=== PATIENT | female | born 1995 | race Caucasian/White ===

== ENCOUNTER → 2016-12-29 | Outpatient (CLI) | payer MEDICAID ==
--- NOTE | 2017-01-01 15:35 | [facility] ---
[facility] NAME: PIETRO AVILES [facility] REFERENCE #: [id number] : 1995 DATE OF VISIT: 12/29/2016 PRIMARY CARE: [facility]. CHIEF COMPLAINT: Followup complex heart disease. HISTORY: The patient is seen at our [facility]. 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 She had pulmonary outflow tract enlargement surgically and no longer has pulmonary stenosis, although her right ventricle remains smaller than normal in its internal cavity dimension. She had [id number]-jw-[id number] shunting across her residual atrial septal defect. She underwent placement by catheter of an Amplatzer ASD occlusion device by my colleague, Dr. Faria, in order to improve her oximetry. Following this, she had an echocardiogram bubble contrast study done in August 2015 showing she had residual atrial gvqif-wq-wvvs shunting with a septal occluder in place. I have seen her in the past with some symptoms of common orthostatic intolerance, including migraine headaches and postural light headedness. At this visit, she reports that when she was taking atenolol she had less headaches, minimal lightheadedness, and no fainting. She does not have significant tachycardia palpitations. MEDICATIONS: Aspirin 81 mg. ALLERGIES TO MEDICATION: None. SOCIAL HISTORY: She lives with friends. She is sexually active and does not use contraception but does use barrier methods. 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 She works at the [employer]. She does not smoke. PAST MEDICAL HISTORY: Childhood heart operation for pulmonary atresia with intact ventricular septum including RV outflow tract reconstruction. 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 She has had hip surgery on both hips, last at age thirteen 13. REVIEW OF SYSTEMS: Positive for headaches two to three times per week. She sometimes gets a muscle spasm in her flank but has minimal back pains. She has lost thirteen pounds since visit of last February, but she has been doing some dieting and has been quite active to slim down a bit. She denies vision problems, wheezing or coughing, vomiting, diarrhea, constipation, urinary symptoms, developmental delays, or skin issues. FAMILY HISTORY: Positive for migraines. PHYSICAL EXAMINATION: Weight 115 pounds. Height five feet one inch. Blood pressure 105/65. Heart rate 70. Oximetry 97%. General exam is a delightful young woman whose color and perfusion appear excellent. She has a cleft lip repair. Her vocal quality is normal. Thyroid not enlarged or nodular. Lungs clear bilateral. Precordial activity is normal. Cardiac auscultation reveals no pathological murmur, click, or gallop. Liver edged palpable 2 cm below the right costal margin but not huge. Pulses are normal. Extremities without edema or acrocyanosis. Gait and coordination appear good. Echocardiogram performed, see report. IMPRESSION: Pulmonary atresia status post right ventricular outflow tract reconstruction with a somewhat hypoplastic cavity of the right ventricle and a mildly small tricuspid annulus. Status post placement of Amplatzer catheter device in the atrial septum to limit [id number]-[id number] atrial shunt. She has good left ventricular function. Her Amplatzer occluder is in good position. Her oximetry level is nearly normal and improved compared to before. She has vascular headaches which have been a problem for her and is a family history trait. She states that she did much better with her headaches when she was on a beta theresa. I am starting her on metoprolol one half of a 25 mg tablet daily. If this resolves her symptoms, she can maintain it. If it does not, I asked her to advance to 25 mg daily and call me with a symptom report. She is to hydrate well. I would like to see her back in one year for another echocardiogram. ESTEBAN OLMOS MD [id number] PHY#: [id number] ID: [id number] JOB#: [id number] ACCT: [id number] cc:ESTEBAN OLMOS MD [facility], M.D > [id number]
--- NOTE | 2017-01-01 16:14 | NONINVASIVE CARDIOLOGY REPORT ---
ECHOCARDIOGRAPHY REPORT PATIENT NAME: PIETRO AVILES ROOM#: DATE OF SERVICE: 12/29/2016 : 1995 REFERRING MD: ORDER #: [id number] INDICATION: Followup complex heart disease. U REFERENCE: [id number] REPORT Patient height 5 foot 1 inch. Weight 115 pounds. This echocardiogram shows excellent position of the Amplatzer occluder. The tricuspid annulus is mildly small. The tricuspid apparatus appears unrestricted in motion. The right ventricular cavity is mildly small. The right ventricular wall is abnormally thick. The left ventricle shows normal systolic performance with ejection fraction 64% and a normal cavity size. The inferior vena cava and hepatic veins are large. The main pulmonary artery and pulmonary annulus appear approximately 1.6 cm diameter. There is no forward pulmonary stenosis through the outflow patch. Pulmonary regurgitation is present but appears to be brief and a very low velocity reflecting the abnormality of diastolic filling of the mildly hypoplastic right ventricle. Trace tricuspid regurgitation is present with a velocity indicating no right ventricular systolic hypertension. There is trivial aortic regurgitation but no significant mitral regurgitation. Color mapping and Doppler show the above-noted features. Cardiac dimensions: LVED 5.4 cm, LVES 3.5 cm, LV wall 0.7 cm, septum 0.7 cm, aortic root 2.7 cm, right ventricle 1.8 cm, left atrium 2.6 cm. Doppler velocities: Aorta 1.0 m/s, pulmonary 0.7 m/s, tricuspid 0.6 m/s, mitral 0.8 m/s, tricuspid regurgitation 1.6 m/s. Per color mapping, no atrial shunt is seen around the Amplatzer occluder. There is no restriction to SVC flow or IVC flow from the Amplatzer occluder. FINAL IMPRESSION: Hypoplastic right heart syndrome with features noted above. Amplatzer occluder in good position. INTERPRETING PHYSICIAN: ESTEBAN OLMOS MD /: [id number] TT: 2040 ID: [id number] /: [id number] TD: 1403 JOB: [id number] cc:ESTEBAN OLMOS MD [facility], M.D >
== END ==
LOC: PC 09:26
PROVIDERS: ATTEND Pediatrics Pediatric Cardiology
DX: Q25.5 Atresia of pulmonary artery (principal)
CPT/HCPCS: 93304; 93321; 93325; 94760

== ENCOUNTER 2017-02-23 01:01 | Emergency (ER) | payer SELFPAY ==
--- NOTE | 2017-02-23 01:50 | ER Document Report ---
ED General - General Chief Complaint: Chest Pain Stated Complaint: CHEST PAIN Time seen by provider: 01:50 Mode of Arrival: Ambulatory Information source: Patient TRAVEL OUTSIDE OF THE U.S. IN LAST 30 DAYS: No - HPI Patient complains to provider of: chest pain Onset: Just prior to arrival Onset/Duration: Sudden Quality of pain: Pressure Severity: Mild Exacerbated by: Denies Relieved by: Denies Similar symptoms previously: No Recently seen / treated by doctor: Yes Notes: Patient is a 21-year-old female with a history of congenital heart defect which includes pulmonary atresia, requiring surgery when she was 10 days old, as well as migraine headaches, hypertension and MS, patient reports symptoms started approximately 30 minutes prior to arrival and in the emergency room, and started when she laid down to go to sleep, states it feels as though she needs to burp, and she feels as though there is pressure when she is trying to swallow , symptoms are better when she is standing straight, and have almost nearly resolved by the time I initially evaluated her, she states her last meal was around 7:30 PM and consisted of chicken and maltese fries - Related Data Allergies/Adverse Reactions: No Known Allergies Allergy (Verified 02/23/17 01:09) Past Medical History - General Information source: Patient - Social History Smoking Status: Current Every Day Smoker Family History: None Neurological Medical History: Reports: Hx Migraine Renal/ Medical History: Denies: Hx Peritoneal Dialysis Past Surgical History: Reports: Hx Cardiac Catheterization, Hx Cardiac Surgery, Hx Open Heart Surgery - valve repair, Hx Oral Surgery - cleft palate repair, Hx Orthopedic Surgery - hip surgery x 2 - Immunizations Immunizations up to date: Yes Hx Diphtheria, Pertussis, Tetanus Vaccination: Yes Review of Systems - Review of Systems Constitutional: No symptoms reported EENT: No symptoms reported Cardiovascular: See HPI Respiratory: No symptoms reported Gastrointestinal: No symptoms reported Genitourinary: No symptoms reported Female Genitourinary: No symptoms reported Musculoskeletal: No symptoms reported Skin: No symptoms reported Hematologic/Lymphatic: No symptoms reported Neurological/Psychological: No symptoms reported -: Yes All other systems reviewed and negative Physical Exam - Vital signs Vitals: Temp Pulse Resp BP Pulse Ox 97.7 F 95 22 H 136/79 H 99 02/23/17 01:11 02/23/17 01:11 02/23/17 01:11 02/23/17 01:11 02/23/17 01:11 Interpretation: Normal - General General appearance: Appears well, Alert - HEENT Head: Normocephalic, Atraumatic Eyes: Normal Pupils: PERRL - Respiratory Respiratory status: No respiratory distress Chest status: Nontender Breath sounds: Normal Chest palpation: Normal - Cardiovascular Rhythm: Regular Heart sounds: Normal auscultation Murmur: No - Abdominal Inspection: Normal Distension: No distension Bowel sounds: Normal Tenderness: Nontender Organomegaly: No organomegaly - Back Back: Normal, Nontender - Extremities General upper extremity: Normal inspection, Nontender, Normal color, Normal ROM , Normal temperature General lower extremity: Normal inspection, Nontender, Normal color, Normal ROM , Normal temperature, Normal weight bearing. No: Brenda's sign - Neurological Neuro grossly intact: Yes Cognition: Normal Orientation: AAOx4 [place] Coma Scale Eye Opening: Spontaneous [place] Coma Scale Verbal: Oriented [place] Coma Scale Motor: Obeys Commands [place] Coma Scale Total: 15 Speech: Normal Motor strength normal: LUE, RUE, LLE, RLE Sensory: Normal - Psychological Associated symptoms: Normal affect, Normal mood - Skin Skin Temperature: Warm Skin Moisture: Dry Skin Color: Normal Course - Re-evaluation Re-evalutation: 02/23/17 03:26 Patient sleeping comfortably on stretcher, easily aroused, reports feeling much better, symptoms have resolved, lab and imaging findings, which are unremarkable , she will be discharged with instructions for follow-up and advised to return if symptoms worsen, patient acknowledges understanding and agreement with this plan - Vital Signs Vital signs: Temp Pulse Resp BP Pulse Ox 98.0 F 90 18 130/80 H 98 02/23/17 03:36 02/23/17 03:36 02/23/17 03:36 02/23/17 03:36 02/23/17 03:36 - Laboratory Result Diagrams: 02/23/17 01:35 02/23/17 01:35 Laboratory results interpreted by me: 02/23/17 01:35 Total Bilirubin 1.6 H Creatine Kinase 148 H - Diagnostic Test Radiology reviewed: Image reviewed, Reports reviewed - EKG Interpretation by Me EKG shows normal: Sinus rhythm Rate: Normal Rhythm: NSR [place]/QRS: RBBB When compared to previous EKG there are: No significant change Discharge - Discharge Clinical Impression: Chest pain Qualifiers: Chest pain type: unspecified Qualified Code(s): R07.9 - Chest pain, unspecified Condition: Stable Disposition: HOME, SELF-CARE Instructions: Chest Pain of Unclear Cause ([facility]) Additional Instructions: Follow up with your primary care provider in one to 2 days. Return to the emergency room immediately if symptoms worsen or any additional concerns.
[2017-02-23 01:58] LABS: ABSOLUTE EOSINOPHILS # (AUTO) 0.1 10^3/uL (0.0-0.6); ABSOLUTE LYMPHOCYTES (AUTO) 1.9 10^3/uL (0.5-4.7); ABSOLUTE MONOCYTES (AUTO) 0.4 10^3/uL (0.1-1.4); ABSOLUTE NEUT (AUTO) 3.7 10^3/uL (1.7-8.2); BASOPHILS % (AUTO) 0.7 % (0-2); EOSINOPHILS % (AUTO) 1.7 % (0-6); HEMATOCRIT 40.3 % (36.0-47.0); HEMOGLOBIN 13.7 g/dL (12.0-15.5); HGB HCT DIFFERENCE 0.8; LYMPHOCYTES % (AUTO) 31.1 % (13-45); MEAN CORPUSCULAR HEMOGLOBIN 30.8 pg (27.0-33.4); MEAN CORPUSCULAR HGB CONC 33.9 g/dL (32.0-36.0); MEAN CORPUSCULAR VOLUME 91 fl (80-97); MONOCYTES % (AUTO) 6.5 % (3-13); RED BLOOD COUNT 4.45 10^6/uL (3.72-5.28); RED CELL DISTRIBUTION WIDTH 12.8 % (11.5-14.0); WHITE BLOOD COUNT 6.1 10^3/uL (4.0-10.5)
[2017-02-23 02:04] LABS: APPEARANCE,URINE SLIGHTLY-CLOUDY; BILIRUBIN,URINE NEGATIVE (NEGATIVE); GLUCOSE, URINE NEGATIVE (NEGATIVE); KETONES,URINE NEGATIVE (NEGATIVE); LEUKOCYTE ESTERASE,URINE NEGATIVE (NEGATIVE); NITRITE,URINE NEGATIVE (NEGATIVE); PROTEIN,URINE NEGATIVE (NEGATIVE); URINE SPECIFIC GRAVITY 1.002; UROBILINOGEN,URINE NEGATIVE mg/dL (<2.0)
[2017-02-23 02:09] LABS: ALANINE AMINOTRANSFERASE 30 U/L (9-52); ALBUMIN 4.5 g/dL (3.5-5.0); ALKALINE PHOSPHATASE 78 U/L (38-126); ANION GAP 16 (5-19); ASPARTATE AMINO TRANSFERASE 29 U/L (14-36); BILIRUBIN,DIRECT 0.4 mg/dL (0.0-0.4); BILIRUBIN,TOTAL 1.6 mg/dL (0.2-1.3); BLOOD UREA NITROGEN 16 mg/dL (7-20); CALCIUM 9.8 mg/dL (8.4-10.2); CARBON DIOXIDE 22 mmol/L (22-30); CHLORIDE 107 mmol/L (98-107); CREATINE KINASE 148 U/L (30-135); CREATININE RESULT 0.79 mg/dL (0.52-1.25); GLUCOSE 92 mg/dL (75-110); POTASSIUM 3.8 mmol/L (3.6-5.0); SODIUM 144.6 mmol/L (137-145); TOTAL PROTEIN 7.3 g/dL (6.3-8.2)
[2017-02-23 02:20] LABS: CREATINE KINASE MB 1.55 ng/mL (<4.55)
[2017-02-23 02:21] LABS: TROPONIN I < 0.012 ng/mL
[2017-02-23 03:37] VITALS: BP 130/80
--- NOTE | 2017-02-23 09:40 | EKG REPORT ---
SEVERITY:- ABNORMAL ECG - SINUS RHYTHM LEFT ATRIAL ABNORMALITY RIGHT BUNDLE BRANCH BLOCK : Confirmed by: Emanuel Michael 23-Feb-2017 09:39:21
== END 2017-02-23 03:44 | disposition home or self-care (01) ==
LOC: ER 01:01
DX: R07.89 Other chest pain (principal); I10 Essential (primary) hypertension; F17.200 Nicotine dependence, unspecified, uncomplicated; Z87.74 Personal history of (corrected) congenital malformations of heart and circulatory system
CPT/HCPCS: 36415; 71020; 80053; 81001; 82550; 82553; 84484; 84703; 85025; 93005; 93010; 99285

== ENCOUNTER 2017-04-06 12:00 | Emergency (ER) | payer SELFPAY ==
--- NOTE | 2017-04-06 12:42 | ER Document Report ---
ED Medical Screen (RME) - General Chief Complaint: Lower Abdominal Pain Stated Complaint: ABDOMINAL PAIN Time Seen by Provider: 04/06/17 12:36 Notes: 21-year-old female patient with stabbing pelvic pain made worse trying to have bowel movement or during urination. There is no dysuria. There is been no vaginal discharge for 2 days. There has been nausea vomiting diarrhea. LMP was 03/24/2017. GC chlamydia PCR urine ordered, to be followed by clean-catch urine for urinalysis. I have greeted and performed a rapid initial assessment of this patient. A comprehensive ED assessment and evaluation of the patient, analysis of test results and completion of the medical decision making process will be conducted by additional ED providers. TRAVEL OUTSIDE OF THE U.S. IN LAST 30 DAYS: No - Related Data Allergies/Adverse Reactions: No Known Allergies Allergy (Verified 04/06/17 12:15) Past Medical History - Social History Chew tobacco use (# tins/day): No Frequency of alcohol use: None Drug Abuse: None Neurological Medical History: Reports: Hx Migraine Renal/ Medical History: Denies: Hx Peritoneal Dialysis Past Surgical History: Reports: Hx Cardiac Catheterization, Hx Cardiac Surgery, Hx Open Heart Surgery - valve repair, Hx Oral Surgery - cleft palate repair, Hx Orthopedic Surgery - hip surgery x 2 - Immunizations Immunizations up to date: Yes Hx Diphtheria, Pertussis, Tetanus Vaccination: Yes Physical Exam - Vital signs Vitals: Temp Pulse Resp BP Pulse Ox 98.0 F 70 16 111/60 96 04/06/17 12:15 04/06/17 12:15 04/06/17 12:15 04/06/17 12:15 04/06/17 12:15 Course - Vital Signs Vital signs: Temp Pulse Resp BP Pulse Ox 98.0 F 70 16 111/60 96 04/06/17 12:15 04/06/17 12:15 04/06/17 12:15 04/06/17 12:15 04/06/17 12:15
[2017-04-06 13:21] LABS: ABSOLUTE EOSINOPHILS # (AUTO) 0.1 10^3/uL (0.0-0.6); ABSOLUTE MONOCYTES (AUTO) 0.3 10^3/uL (0.1-1.4); MEAN CORPUSCULAR HEMOGLOBIN 30.8 pg (27.0-33.4); MEAN CORPUSCULAR HGB CONC 33.1 g/dL (32.0-36.0); MONOCYTES % (AUTO) 5.6 % (3-13)
--- NOTE | 2017-04-06 13:23 | ER Document Report ---
ED GI/ - General Chief Complaint: Lower Abdominal Pain Stated Complaint: ABDOMINAL PAIN Time Seen by Provider: 04/06/17 12:36 Mode of Arrival: Ambulatory Information source: Patient Notes: 1-year-old female presents to ED for pelvic pain states sometimes has cramping and pain with bowel movement or when she urinate. Complains of no pain or burning with urination. Denies any vaginal discharge states she has had nausea vomiting and diarrhea for the last 2 days. Last menstrual period was 03/24/2017. TRAVEL OUTSIDE OF THE [place]. IN LAST 30 DAYS: No - HPI Patient complains to provider of: Abdominal pain, Diarrhea, Vomiting Onset: Yesterday Timing/Duration: Intermittent Quality of pain: Cramping Location: Pelvis Vaginal bleeding (Compared to normal period): None LMP: 03/24/17 Associated symptoms: Nausea, Vomiting Exacerbated by: Other - bm Relieved by: Denies Similar symptoms previously: Yes Recently seen / treated by doctor: No - Related Data Allergies/Adverse Reactions: No Known Allergies Allergy (Verified 04/06/17 12:15) Past Medical History - General Information source: Patient - Social History Smoking Status: Current Every Day Smoker Cigarette use (# per day): Yes - 3-4 cig a day Chew tobacco use (# tins/day): No Smoking Education Provided: Yes - less than 2 min Frequency of alcohol use: None Drug Abuse: None Occupation: [employer] Lives with: Spouse/Significant other Family History: Arthritis, CAD, COPD, CVA, DM, Hyperlipidemia, Hypertension Patient has suicidal ideation: No Patient has homicidal ideation: No - Medical History Medical History: Other - Lip and cleft palate - Past Medical History Cardiac Medical History: Reports: Other - Congenital heart disease and ASD Pulmonary Medical History: Reports: None EENT Medical History: Reports: None Neurological Medical History: Reports: Hx Migraine Endocrine Medical History: Reports: None Renal/ Medical History: Reports: None Malignancy Medical History: Reports: None GI Medical History: Reports: None Musculoskeltal Medical History: Reports Hx Musculoskeletal Deformity Skin Medical History: Reports None Psychiatric Medical History: Reports: None Traumatic Medical History: Reports: None Infectious Medical History: Reports: None Past Surgical History: Reports: Hx Cardiac Catheterization, Hx Open Heart Surgery - valve repair, Hx Oral Surgery - cleft palate and lip repair, Hx Orthopedic Surgery - hip surgery x 2 - Immunizations Immunizations up to date: Yes Hx Diphtheria, Pertussis, Tetanus Vaccination: Yes Review of Systems - Review of Systems Constitutional: No symptoms reported EENT: No symptoms reported Cardiovascular: No symptoms reported Respiratory: No symptoms reported Gastrointestinal: Abdominal pain, Diarrhea, Nausea, Vomiting Genitourinary: No symptoms reported Female Genitourinary: Other - Pain pelvic Musculoskeletal: No symptoms reported Skin: No symptoms reported Hematologic/Lymphatic: No symptoms reported Neurological/Psychological: No symptoms reported -: Yes All other systems reviewed and negative Physical Exam - Vital signs Vitals: Temp Pulse Resp BP Pulse Ox 98.0 F 70 16 111/60 96 04/06/17 12:15 04/06/17 12:15 04/06/17 12:15 04/06/17 12:15 04/06/17 12:15 Interpretation: Normal - General General appearance: Appears well, Alert - HEENT Head: Normocephalic, Atraumatic Eyes: Normal Pupils: PERRL - Respiratory Respiratory status: No respiratory distress Chest status: Nontender Breath sounds: Normal Chest palpation: Normal - Cardiovascular Rhythm: Regular Heart sounds: Normal auscultation Murmur: No - Abdominal Inspection: Normal Distension: No distension Bowel sounds: Normal Tenderness: Tender - Lower abdomen pelvis area Organomegaly: No organomegaly - Back Back: Normal, Nontender - Extremities General upper extremity: Normal inspection, Nontender, Normal color, Normal ROM , Normal temperature General lower extremity: Normal inspection, Nontender, Normal color, Normal ROM , Normal temperature, Normal weight bearing. No: Brenda's sign - Neurological Neuro grossly intact: Yes Cognition: Normal Orientation: AAOx4 [place] Coma Scale Eye Opening: Spontaneous [place] Coma Scale Verbal: Oriented [place] Coma Scale Motor: Obeys Commands [place] Coma Scale Total: 15 Speech: Normal Motor strength normal: LUE, RUE, LLE, RLE Sensory: Normal - Psychological Associated symptoms: Normal affect, Normal mood - Skin Skin Temperature: Warm Skin Moisture: Dry Skin Color: Normal Course - Re-evaluation Re-evalutation: 04/06/17 22:17 Labs with patient. Patient discharged home with prescription for Zofran and instructions to follow-up with her primary doctor. Given peanut butter crackers and juice due to her sugar of 63 while in the emergency room and instructed to eat when she left the emergency room. - Vital Signs Vital signs: Temp Pulse Resp BP Pulse Ox 98.4 F 68 18 108/54 L 100 04/06/17 15:30 04/06/17 15:30 04/06/17 15:30 04/06/17 15:30 04/06/17 15:30 - Laboratory Result Diagrams: 04/06/17 13:10 04/06/17 13:10 Laboratory results interpreted by me: 04/06/17 04/06/17 13:10 13:10 Glucose 63 L Total Bilirubin 1.8 H Urine Urobilinogen 2.0 H Ur Leukocyte Esterase TRACE H Discharge - Discharge Clinical Impression: Viral illness Abdominal pain Qualifiers: Abdominal location: unspecified location Qualified Code(s): R10.9 - Unspecified abdominal pain Condition: Stable Disposition: HOME, SELF-CARE Instructions: Family Physicians / Practices Additional Instructions: ABDOMINAL PAIN: There are many causes of abdominal pain. Pain can mean a serious problem requiring surgery (such as appendicitis). It can also be an innocent problem that goes away on its own (such as a viral infection). Often, time must pass to determine the cause of pain. The physician does not feel that hospitalization is necessary, at present. Things may change within the next 24 hours. Call the doctor or come back for re- examination if any problems occur, such as: (1) Pain that becomes more severe, steady, or becomes concentrated in one specific area. Also, pain that is more severe with movement or coughing. (2) Vomiting that persists or becomes more frequent. (3) Blood in the vomitus, urine, or bowel movements. Blood in the stool may have a tarry or black appearance. (4) Shaking chills or fever greater than 100 degrees F. (5) The abdomen becomes more distended or swollen. (6) Bowel movements cease. (7) Failure to improve as expected. NORMAL EXAM AND WORKUP: At this time, your examination and workup show no significant abnormality. No significant abnormal physical findings are noted. All laboratory, EKG, and imaging (x-ray, CT scans, ultrasound) studies that were ordered show no significant abnormality. Although your examination and all studies that were ordered showed no significant abnormal finding, there are no examinations and no studies that are 100% accurate. There is always the possibility that some abnormality could exist and not be detected with physical examination or within the limits and capabilities of laboratory and other studies. You should return or follow up as you were instructed on your visit today for further evaluation if your symptoms do not resolve. ANTINAUSEA MEDICATION: You have been given a medication to suppress nausea and vomiting. This type of medication can be given as a shot, pill, or suppository. It will usually last for many hours. Pills and shots usually last six to eight hours, suppositories last about 12 hours. For the typical illness, only one or two doses of the medication may be necessary. Mild lightheadedness may occur. This type of medicine can cause drowsiness. Do not drive or operate dangerous machinery while under its influence. Do not mix with alcohol. See your doctor at once if you have muscle spasms or tightness, or uncontrollable motions (particularly of the neck, mouth, or jaw). Persistent vomiting or severe lightheadedness should also be evaluated by the physician. FOLLOW-UP CARE: If you have been referred to a physician for follow-up care, call the physician s office for an appointment as you were instructed or within the next two days. If you experience worsening or a significant change in your symptoms, notify the physician immediately or return to the Emergency Department at any time for re-evaluation. FOLLOW-UP CARE: You should return for re-evaluation in 12 hours. This follow-up visit is important. If you are unable to return, or feel that the return visit is unnecessary, please call us. Prescriptions: Ondansetron [Zofran Odt 4 mg Tablet] 1 tab PO Q6H #15 tab.rapdis Forms: Smoking Cessation Education, Return to Work
[2017-04-06 13:32] LABS: APPEARANCE,URINE SLIGHTLY-CLOUDY; BILIRUBIN,URINE NEGATIVE (NEGATIVE); GLUCOSE, URINE NEGATIVE (NEGATIVE); KETONES,URINE NEGATIVE (NEGATIVE); LEUKOCYTE ESTERASE,URINE TRACE (NEGATIVE); NITRITE,URINE NEGATIVE (NEGATIVE); PROTEIN,URINE NEGATIVE (NEGATIVE); URINE SPECIFIC GRAVITY 1.025
[2017-04-06 13:33] LABS: ABSOLUTE LYMPHOCYTES (AUTO) 1.2 10^3/uL (0.5-4.7); ABSOLUTE NEUT (AUTO) 3.6 10^3/uL (1.7-8.2); BASOPHILS % (AUTO) 0.7 % (0-2); EOSINOPHILS % (AUTO) 1.3 % (0-6); HEMATOCRIT 44.1 % (36.0-47.0); HEMOGLOBIN 14.6 g/dL (12.0-15.5); HGB HCT DIFFERENCE -0.3; LYMPHOCYTES % (AUTO) 22.9 % (13-45); MEAN CORPUSCULAR VOLUME 93 fl (80-97); RED BLOOD COUNT 4.73 10^6/uL (3.72-5.28); RED CELL DISTRIBUTION WIDTH 13.1 % (11.5-14.0); SEGMENTED NEUTROPHILS % (AUTO) 69.5 % (42-78); WHITE BLOOD COUNT 5.3 10^3/uL (4.0-10.5)
[2017-04-06 13:48] LABS: ALANINE AMINOTRANSFERASE 34 U/L (9-52); ALBUMIN 4.4 g/dL (3.5-5.0); ALKALINE PHOSPHATASE 74 U/L (38-126); ANION GAP 10 (5-19); ASPARTATE AMINO TRANSFERASE 27 U/L (14-36); BILIRUBIN,DIRECT 0.3 mg/dL (0.0-0.4); BILIRUBIN,TOTAL 1.8 mg/dL (0.2-1.3); BLOOD UREA NITROGEN 11 mg/dL (7-20); CALCIUM 9.6 mg/dL (8.4-10.2); CARBON DIOXIDE 25 mmol/L (22-30); CHLORIDE 106 mmol/L (98-107); CREATININE RESULT 0.75 mg/dL (0.52-1.25); GLUCOSE 63 mg/dL (75-110); POTASSIUM 4.1 mmol/L (3.6-5.0); SODIUM 140.5 mmol/L (137-145); TOTAL PROTEIN 7.4 g/dL (6.3-8.2)
[2017-04-06 15:05] LABS: CHLAM PCR NOT DETECTED (NOT DETECT)
[2017-04-06 16:02] VITALS: BP 108/54
== END 2017-04-06 16:02 | disposition home or self-care (01) ==
LOC: ER 12:00
DX: B34.9 Viral infection, unspecified (principal); R10.30 Lower abdominal pain, unspecified; R19.7 Diarrhea, unspecified; R11.10 Vomiting, unspecified; F17.210 Nicotine dependence, cigarettes, uncomplicated
CPT/HCPCS: 36415; 80053; 81001; 84703; 85025; 87491; 87591; 99284

== ENCOUNTER 2017-12-13 12:42 | Emergency (ER) | payer SELFPAY ==
--- NOTE | 2017-12-13 13:49 | ER Document Report ---
ED Medical Screen (RME) - General Chief Complaint: Abdominal Pain Stated Complaint: HEADACHE, DIARRHEA, NAUSEA Time Seen by Provider: 12/13/17 13:48 Mode of Arrival: Ambulatory Information source: Patient Notes: 22-year-old female with a history of cleft palate, pulmonary atresia, who presents with a migraine headache for the past 5 days. Patient denies any fever , chills, abdominal pain or vomiting. TRAVEL OUTSIDE OF THE [place] IN LAST 30 DAYS: No - HPI Onset: Last week Onset/Duration: Gradual Quality of pain: Dull Severity: Moderate Pain Level: 2 Associated Symptoms: denies: Chest pain, Fever, Slow to respond Exacerbated by: Denies Relieved by: Denies Similar symptoms previously: Yes Recently seen / treated by doctor: No - Related Data Smoking: Non-smoker Frequency of alcohol use: None Drug Abuse: None Allergies/Adverse Reactions: No Known Allergies Allergy (Verified 04/06/17 12:15) Past Medical History - General Information source: Patient - Social History Cigarette use (# per day): No Chew tobacco use (# tins/day): No Frequency of alcohol use: None Drug Abuse: None Lives with: Spouse/Significant other Family history: None - Past Medical History Cardiac Medical History: Reports: None Pulmonary Medical History: Reports: Other - Pulmonary atresia EENT Medical History: Reports: Other - Cleft palate Neurological Medical History: Reports: Hx Migraine Renal/ Medical History: Denies: Hx Peritoneal Dialysis Musculoskeltal Medical History: Reports Hx Musculoskeletal Deformity Past Surgical History: Reports: Hx Cardiac Catheterization, Hx Cardiac Surgery, Hx Open Heart Surgery - valve repair, Hx Oral Surgery - cleft palate and lip repair, Hx Orthopedic Surgery - hip surgery x 2 - Immunizations Immunizations up to date: Yes Hx Diphtheria, Pertussis, Tetanus Vaccination: Yes Review of Systems - Review of Systems Notes: Review of systems: Constitutional: Denies fever, chills. EENT: Denies ear pain, sinus tenderness, throat pain, throat swelling. Cardiovascular: Denies chest pain, palpitations, dyspnea or edema. Respiratory: Denies wheezing, cough, hemoptysis. Abdomen: Denies abdominal pain, nausea, vomiting, diarrhea. Denies BRBPR or melena. Genitourinary: Denies dysuria, pyuria, hematuria, flank pain. Musculoskeletal: denies joint pain or swelling, denies back pain. Neurologic: Positive for headache. Denies photophobia, neck stiffness, weakness. Denies loss of bowel or bladder function. Denies saddle anesthesia. Skin: Denies rash, lesions. Physical Exam - Vital signs Vitals: Temp Pulse Resp BP Pulse Ox 98.1 F 65 14 117/70 96 12/13/17 13:11 12/13/17 13:11 12/13/17 13:11 12/13/17 13:11 12/13/17 13:11 Notes: Physical exam: GENERAL: 82-year-old female, alert and oriented 3, no acute distress. The patient is sitting up, looks good. HEAD: Atraumatic, normocephalic. EYES: Pupils equal round and reactive to light, extraocular movements intact, sclera anicteric, conjunctiva are normal. ENT: TMs normal, nares patent, oropharynx clear without exudates. Moist mucous membranes. NECK: Normal range of motion, supple without obvious mass or JVD. LUNGS: Breath sounds clear to auscultation bilaterally and equal. No wheezes rales or rhonchi. HEART: Regular rate and rhythm without murmurs, rubs or gallops. ABDOMEN: Soft, normoactive bowel sounds. No tenderness to palpation. No guarding, no rebound. No masses appreciated. EXTREMITIES: Normal range of motion, no pitting or edema. No clubbing or cyanosis. NEUROLOGICAL: Cranial nerves II through XII grossly intact. Discs sharp, motor 5/5, sensory grossly intact, cerebellar (finger to nose) good, Romberg negative , reflexes symmetrical, normal speech, gait normal. The patient has no photophobia, her neck is supple, there is no meningismus. PSYCH: Normal mood, normal affect. SKIN: Warm, Dry, normal turgor, no rashes or lesions noted. Course - Vital Signs Vital signs: Temp Pulse Resp BP Pulse Ox 98.1 F 65 14 117/70 96 12/13/17 13:11 12/13/17 13:11 12/13/17 13:11 12/13/17 13:11 12/13/17 13:11 Doctor's Discharge - Discharge Clinical Impression: Migraine Condition: Stable Disposition: HOME, SELF-CARE Instructions: Migraine Headache ([facility]) Additional Instructions: As we discussed, your neurologic exam is very good today. Recommendations: Try the Reglan: This is a medicine for migraines and nausea. Take it at night because you it may make you feel sleepy. I would like you to follow-up with a neurologist: I left a number on the chart. Return to the emergency room if you feel like her migraines are getting worse. I would also like you to follow-up with Dr. Alvarenga for the pulmonary atresia. Prescriptions: Metoclopramide HCl [Reglan 10 mg Tablet] 1 - 2 tab PO ASDIR PRN #10 tablet PRN Reason: Referrals: NIALL GARRIDO MD [ACTIVE STAFF] - Follow up as needed (Call for an appointment (this is the number for the neurologist).)
[2017-12-13 14:33] VITALS: BP 109/81
== END 2017-12-13 14:30 | disposition home or self-care (01) ==
LOC: ER 12:42
DX: G43.909 Migraine, unspecified, not intractable, without status migrainosus (principal)
CPT/HCPCS: 81025; 99284

== ENCOUNTER 2018-01-08 18:55 | Emergency (ER) | payer SELFPAY ==
--- NOTE | 2018-01-08 19:53 | ER Document Report ---
ED Medical Screen (RME) - General Chief Complaint: Abdominal Cramping Stated Complaint: VAGINAL BLEEDING/CRAMPING Time Seen by Provider: 01/08/18 19:52 Mode of Arrival: Ambulatory Information source: Patient Notes: 22-year-old female presents with complaints of vaginal bleeding. Patient is 2 para 1 5 weeks noting slimy red bleeding since this morning History of pulmonary atresia I have greeted and performed a rapid initial assessment of this patient. A comprehensive ED assessment and evaluation of the patient, analysis of test results and completion of the medical decision making process will be conducted by additional ED providers. PHYSICAL EXAMINATION: GENERAL: Well-appearing, well-nourished and in no acute distress. HEAD: Atraumatic, normocephalic. EYES: Pupils equal round extraocular movements intact, conjunctiva are normal. ENT: Nares patent NECK: Normal range of motion LUNGS: No respiratory distress Musculoskeletal: Normal range of motion NEUROLOGICAL: Normal speech, normal gait. PSYCH: Normal mood, normal affect. SKIN: Midline surgical incision scar TRAVEL OUTSIDE OF THE [place] IN LAST 30 DAYS: No - Related Data Allergies/Adverse Reactions: No Known Allergies Allergy (Verified 01/08/18 18:56) Past Medical History - Social History Family history: None Neurological Medical History: Reports: Hx Migraine Renal/ Medical History: Denies: Hx Peritoneal Dialysis Musculoskeltal Medical History: Reports Hx Musculoskeletal Deformity Past Surgical History: Reports: Hx Cardiac Catheterization, Hx Cardiac Surgery, Hx Open Heart Surgery - valve repair, Hx Oral Surgery - cleft palate and lip repair, Hx Orthopedic Surgery - hip surgery x 2 - Immunizations Immunizations up to date: Yes Hx Diphtheria, Pertussis, Tetanus Vaccination: Yes Physical Exam - Vital signs Vitals: Temp Pulse Resp BP Pulse Ox 98.0 F 87 18 123/73 99 01/08/18 19:08 01/08/18 19:08 01/08/18 19:08 01/08/18 19:08 01/08/18 19:08 Course - Vital Signs Vital signs: Temp Pulse Resp BP Pulse Ox 98.0 F 87 18 123/73 99 01/08/18 19:08 01/08/18 19:08 01/08/18 19:08 01/08/18 19:08 01/08/18 19:08
[2018-01-08 20:29] LABS: ABSOLUTE EOSINOPHILS # (AUTO) 0.1 10^3/uL (0.0-0.6); ABSOLUTE LYMPHOCYTES (AUTO) 1.6 10^3/uL (0.5-4.7); ABSOLUTE MONOCYTES (AUTO) 0.6 10^3/uL (0.1-1.4); ABSOLUTE NEUT (AUTO) 6.1 10^3/uL (1.7-8.2); BASOPHILS % (AUTO) 0.3 % (0-2); EOSINOPHILS % (AUTO) 0.7 % (0-6); HEMOGLOBIN 14.5 g/dL (12.0-15.5); LYMPHOCYTES % (AUTO) 19.4 % (13-45); MEAN CORPUSCULAR HGB CONC 33.7 g/dL (32.0-36.0); MEAN CORPUSCULAR VOLUME 92 fl (80-97); MONOCYTES % (AUTO) 6.9 % (3-13); PLATELET COUNT 220 10^3/uL (150-450); RED BLOOD COUNT 4.67 10^6/uL (3.72-5.28); RED CELL DISTRIBUTION WIDTH 12.8 % (11.5-14.0); SEGMENTED NEUTROPHILS % (AUTO) 72.7 % (42-78); TOTAL CELLS COUNTED % (AUTO) 100 %; WHITE BLOOD COUNT 8.4 10^3/uL (4.0-10.5)
[2018-01-08 20:39] LABS: ALANINE AMINOTRANSFERASE 41 U/L (9-52); ALBUMIN 4.7 g/dL (3.5-5.0); ALKALINE PHOSPHATASE 68 U/L (38-126); ANION GAP 9 (5-19); ASPARTATE AMINO TRANSFERASE 29 U/L (14-36); BILIRUBIN,DIRECT 0.4 mg/dL (0.0-0.4); BILIRUBIN,TOTAL 0.7 mg/dL (0.2-1.3); BLOOD UREA NITROGEN 13 mg/dL (7-20); CALCIUM 9.8 mg/dL (8.4-10.2); CARBON DIOXIDE 28 mmol/L (22-30); CHLORIDE 106 mmol/L (98-107); GLUCOSE 93 mg/dL (75-110); POTASSIUM 3.6 mmol/L (3.6-5.0); SODIUM 143.4 mmol/L (137-145); TOTAL PROTEIN 7.4 g/dL (6.3-8.2)
[2018-01-08 20:40] LABS: APPEARANCE,URINE SLIGHTLY-CLOUDY; BILIRUBIN,URINE NEGATIVE (NEGATIVE); COLOR,URINE YELLOW; GLUCOSE, URINE NEGATIVE (NEGATIVE); KETONES,URINE NEGATIVE (NEGATIVE); LEUKOCYTE ESTERASE,URINE SMALL (NEGATIVE); NITRITE,URINE NEGATIVE (NEGATIVE); PROTEIN,URINE NEGATIVE (NEGATIVE); URINE SPECIFIC GRAVITY 1.017; UROBILINOGEN,URINE NEGATIVE mg/dL (<2.0)
--- NOTE | 2018-01-08 22:54 | ER Document Report ---
ED GI/ - General Mode of Arrival: Ambulatory Information source: Patient TRAVEL OUTSIDE OF THE [place] IN LAST 30 DAYS: No <ROGELIO CONDE - Last Filed: 01/09/18 01:17> <ROSAURA GUTIÉRREZ - Last Filed: 01/09/18 02:17> - General Chief Complaint: Abdominal Cramping Stated Complaint: VAGINAL BLEEDING/CRAMPING Time Seen by Provider: 01/08/18 19:52 Notes: Patient is a 22-year-old female who presents to the emergency department today with complaints of vaginal bleeding and lower abdominal cramping. Patient states that she was "not planning on getting ". 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 (ROGELIO CONDE) - Related Data Allergies/Adverse Reactions: No Known Allergies Allergy (Verified 01/08/18 18:56) Past Medical History - General Information source: Patient - Social History Smoking Status: Never Smoker Chew tobacco use (# tins/day): No Frequency of alcohol use: None Drug Abuse: None Family History: Arthritis, CAD, COPD, CVA, DM, Hyperlipidemia, Hypertension Patient has suicidal ideation: No Patient has homicidal ideation: No Neurological Medical History: Reports: Hx Migraine Renal/ Medical History: Denies: Hx Peritoneal Dialysis Musculoskeltal Medical History: Reports Hx Musculoskeletal Deformity Past Surgical History: Reports: Hx Cardiac Catheterization, Hx Cardiac Surgery, Hx Open Heart Surgery - valve repair, Hx Oral Surgery - cleft palate and lip repair, Hx Orthopedic Surgery - hip surgery x 2 - Immunizations Immunizations up to date: Yes Hx Diphtheria, Pertussis, Tetanus Vaccination: Yes <ROGELIO CONDE - Last Filed: 01/09/18 01:17> Review of Systems - Review of Systems Constitutional: No symptoms reported EENT: No symptoms reported Cardiovascular: No symptoms reported Respiratory: No symptoms reported Gastrointestinal: See HPI, Abdominal pain Genitourinary: No symptoms reported Female Genitourinary: See HPI, Vaginal bleeding Musculoskeletal: No symptoms reported Skin: No symptoms reported Hematologic/Lymphatic: No symptoms reported Neurological/Psychological: No symptoms reported -: Yes All other systems reviewed and negative <ROGELIO CONDE - Last Filed: 01/09/18 01:17> Physical Exam - Vital signs Interpretation: Normal - General General appearance: Appears well, Alert - HEENT Head: Normocephalic, Atraumatic Eyes: Normal Pupils: PERRL - Respiratory Respiratory status: No respiratory distress Chest status: Nontender Breath sounds: Normal Chest palpation: Normal - Cardiovascular Rhythm: Regular Heart sounds: Normal auscultation Murmur: No - Abdominal Inspection: Normal Distension: No distension Bowel sounds: Normal Tenderness: Tender - Mild suprapubic. No: Guarding, Rebound Organomegaly: No organomegaly - Back Back: Normal, Nontender - Extremities General upper extremity: Normal inspection, Nontender, Normal color, Normal ROM , Normal temperature General lower extremity: Normal inspection, Nontender, Normal color, Normal ROM , Normal temperature, Normal weight bearing. No: Brenda's sign - Neurological Neuro grossly intact: Yes Cognition: Normal Orientation: AAOx4 [place] Coma Scale Eye Opening: Spontaneous [place] Coma Scale Verbal: Oriented [place] Coma Scale Motor: Obeys Commands [place] Coma Scale Total: 15 Speech: Normal Motor strength normal: LUE, RUE, LLE, RLE Sensory: Normal - Psychological Associated symptoms: Normal affect, Normal mood - Skin Skin Temperature: Warm Skin Moisture: Dry Skin Color: Normal <ROSAURA GUTIÉRREZ - Last Filed: 01/09/18 02:17> - Vital signs Vitals: Temp Pulse Resp BP Pulse Ox 98.0 F 87 18 123/73 99 01/08/18 19:08 01/08/18 19:08 01/08/18 19:08 01/08/18 19:08 01/08/18 19:08 Course - Laboratory Result Diagrams: 01/08/18 20:00 01/08/18 20:00 <ROGELIO CONDE - Last Filed: 01/09/18 01:17> - Laboratory Result Diagrams: 01/08/18 20:00 01/08/18 20:00 <ROSAURA GUTIÉRREZ - Last Filed: 01/09/18 02:17> - Re-evaluation Re-evalutation: Patient is a 22-year-old female who comes in for mild pelvic cramping and spotting. Patient has a serum hCG of 9. Last month hCG was negative. Ultrasound is not showing intrauterine , likely because it is too early to see anything. Patient is stable. She is not planning on continuing the . She has been given a referral to women's health but states that she does not need resources at this time. Stable for discharge. Return if any worsening of concerning symptoms. (ROSAURA GUTIÉRREZ) - Vital Signs Vital signs: Temp Pulse Resp BP Pulse Ox 98.4 F 67 18 115/65 100 01/08/18 22:56 01/08/18 23:20 01/08/18 23:20 01/08/18 23:20 01/08/18 23:20 - Laboratory Laboratory results interpreted by me: 01/08/18 01/08/18 20:00 20:00 Beta HCG, Quant 9.86 H Urine Blood LARGE H Ur Leukocyte Esterase SMALL H Discharge <ROGELIO CONDE - Last Filed: 01/09/18 01:17> <ROSAURA GUTIÉRREZ - Last Filed: 01/09/18 02:17> - Discharge Clinical Impression: Bleeding in early Condition: Stable Disposition: HOME, SELF-CARE Instructions: Bleeding During Early ([facility] Department Referrals: [facility] [Provider Group] - Follow up as needed Scribe Attestation: 01/09/18 02:17 I personally performed the services described in the documentation, reviewed and edited the documentation which was dictated to the scribe in my presence, and it accurately records my words and actions. (ROSAURA GUTIÉRREZ) Scribe Documentation - Scribe Written by Michelle:: Michelle Senior, 01/09/2018 [id number] acting as scribe for :: Matthias <ROGELIO CONDE - Last Filed: 01/09/18 01:17>
[2018-01-08 23:25] VITALS: BP 115/65
--- NOTE | 2018-01-09 00:37 | RADIOLOGY REPORT (SQ) ---
EXAM DESCRIPTION: U/S OB TRANSVAGINAL W/O DOP CLINICAL HISTORY: 22 years, Female, 5 weeks vag bleed COMPARISON: None. LIMITATIONS: None. FINDINGS: No living intrauterine identified. 6.3 cm uterus, 2.9 cm right ovary, left ovarian fossa, 2.6 cm cervical length, 0.6 cm thick endometrial stripe appear otherwise unremarkable. Left ovary is separately visualized. Small free fluid in the cul-de-sac. Uterine contour is slightly atypical; cannot exclude a mild mullerian duct developmental variant. IMPRESSION: No living intrauterine is identified. Small free fluid. Differential diagnosis includes early occult viable gestation, gestational loss, and occult ectopic gestation. Recommend 48 to 72 hour laboratory/sonographic surveillance.
== END 2018-01-08 23:20 | disposition home or self-care (01) ==
LOC: ER 18:55
DX: O20.9 Hemorrhage in early pregnancy, unspecified (principal); R10.30 Lower abdominal pain, unspecified
CPT/HCPCS: 36415; 76817; 80053; 81001; 84702; 85025; 87086; 99284

== ENCOUNTER 2018-04-03 09:47 | Emergency (ER) | payer SELFPAY ==
[2018-04-03 10:52] LABS: ABSOLUTE BASOPHILS # (AUTO) 0.1 10^3/uL (0.0-0.2); ABSOLUTE EOSINOPHILS # (AUTO) 0.1 10^3/uL (0.0-0.6); ABSOLUTE LYMPHOCYTES (AUTO) 1.2 10^3/uL (0.5-4.7); ABSOLUTE MONOCYTES (AUTO) 0.5 10^3/uL (0.1-1.4); ABSOLUTE NEUT (AUTO) 5.3 10^3/uL (1.7-8.2); BASOPHILS % (AUTO) 0.9 % (0-2); EOSINOPHILS % (AUTO) 1.3 % (0-6); HEMATOCRIT 44.5 % (36.0-47.0); HEMOGLOBIN 15.1 g/dL (12.0-15.5); LYMPHOCYTES % (AUTO) 16.8 % (13-45); MEAN CORPUSCULAR HEMOGLOBIN 30.9 pg (27.0-33.4); MEAN CORPUSCULAR HGB CONC 33.9 g/dL (32.0-36.0); MEAN CORPUSCULAR VOLUME 91 fl (80-97); MONOCYTES % (AUTO) 6.6 % (3-13); PLATELET COUNT 207 10^3/uL (150-450); RED BLOOD COUNT 4.88 10^6/uL (3.72-5.28); RED CELL DISTRIBUTION WIDTH 13.1 % (11.5-14.0); SEGMENTED NEUTROPHILS % (AUTO) 74.4 % (42-78); TOTAL CELLS COUNTED % (AUTO) 100 %; WHITE BLOOD COUNT 7.1 10^3/uL (4.0-10.5)
--- NOTE | 2018-04-03 10:52 | ER Document Report ---
ED GI/ - General Chief Complaint: Abdominal Pain Stated Complaint: ABDOMINAL PAIN Time Seen by Provider: 04/03/18 10:52 Mode of Arrival: Ambulatory Information source: Patient Notes: 22 yo female c/o abdominal pain for 3 days, right pelvis. No fever or chills. No n/v/d. No vaginal discharge or odor. No dysuria. TRAVEL OUTSIDE OF THE [place] IN LAST 30 DAYS: No - Related Data Allergies/Adverse Reactions: No Known Allergies Allergy (Verified 04/03/18 09:51) Past Medical History - General Information source: Patient - Social History Smoking Status: Unknown if Ever Smoked Chew tobacco use (# tins/day): No Frequency of alcohol use: None Drug Abuse: None Lives with: Spouse/Significant other Family History: Arthritis, CAD, COPD, CVA, DM, Hyperlipidemia, Hypertension Patient has suicidal ideation: No Patient has homicidal ideation: No Neurological Medical History: Reports: Hx Migraine Renal/ Medical History: Denies: Hx Peritoneal Dialysis Musculoskeltal Medical History: Reports Hx Musculoskeletal Deformity Past Surgical History: Reports: Hx Cardiac Catheterization, Hx Cardiac Surgery, Hx Open Heart Surgery - valve repair, Hx Oral Surgery - cleft palate and lip repair, Hx Orthopedic Surgery - hip surgery x 2 - Immunizations Immunizations up to date: Yes Hx Diphtheria, Pertussis, Tetanus Vaccination: Yes Review of Systems - Review of Systems Constitutional: No symptoms reported EENT: No symptoms reported Cardiovascular: No symptoms reported Respiratory: No symptoms reported Gastrointestinal: No symptoms reported Genitourinary: See HPI Female Genitourinary: No symptoms reported Musculoskeletal: No symptoms reported Skin: No symptoms reported Hematologic/Lymphatic: No symptoms reported Neurological/Psychological: No symptoms reported Physical Exam - Vital signs Vitals: Temp Pulse Resp BP Pulse Ox 98.0 F 78 16 114/59 L 96 04/03/18 09:58 04/03/18 09:58 04/03/18 09:58 04/03/18 09:58 04/03/18 09:58 Interpretation: Normal - General General appearance: Appears well, Alert - HEENT Head: Normocephalic, Atraumatic Eyes: Normal Pupils: PERRL Neck: Supple - Respiratory Respiratory status: No respiratory distress Chest status: Nontender Breath sounds: Normal Chest palpation: Normal - Cardiovascular Rhythm: Regular Heart sounds: Normal auscultation Murmur: No - Abdominal Inspection: Normal Distension: No distension Bowel sounds: Normal Tenderness: Tender - pelvos Organomegaly: No organomegaly - Genitourinary External exam: Normal Speculum exam: Cervix closed, Vaginal discharge - yellow, Other - few petechiae on the cervix [place] exam: Cervical motion tender - Back Back: Normal, Nontender. No: CVA tenderness - Extremities General upper extremity: Normal inspection, Nontender, Normal color, Normal ROM , Normal temperature General lower extremity: Normal inspection, Nontender, Normal color, Normal ROM , Normal temperature, Normal weight bearing. No: Brenda's sign - Neurological Neuro grossly intact: Yes Cognition: Normal Orientation: AAOx4 [place] Coma Scale Eye Opening: Spontaneous [place] Coma Scale Verbal: Oriented [place] Coma Scale Motor: Obeys Commands [place] Coma Scale Total: 15 Speech: Normal Motor strength normal: LUE, RUE, LLE, RLE Sensory: Normal - Psychological Associated symptoms: Normal affect, Normal mood - Skin Skin Temperature: Warm Skin Moisture: Dry Skin Color: Normal Course - Re-evaluation Re-evalutation: 04/03/18 13:00 test is negative, wet prep shows bacteria and white blood cells not trichomonas yeast or bacterial vaginosis. CBC chemistry are normal. Urinalysis is negative for infection. 04/03/18 13:01 Patient will have a pelvic ultrasound to look for TOA or torsion. 04/03/18 14:49 pt feels better, moderate free fluid on the US, labs are negative. non . 04/03/18 15:50 pt jumped out of the chair, but whinces to abd. pain which is soft, active BS, non tender to light palpation, states it is upper now , will try GI cocktail and prevacid, po's since she is really [place]; 04/03/18 15:54 04/03/18 16:[address] castro about the moderate free fluid and he rec. IV ct to determine actually what is going on. I have explained to the pt. 04/03/18 17:[address] Peralta about the IV CT and he does see a left ovary which is running high which is the reason they probably could not seen on the transvaginal ultrasound. The right ovary shows a what he thinks is a luteal cyst that probably ruptured causing moderate pounds to the free fluid. I just wanted to make sure that both ovaries were visible. And I will have the patient follow-up with [facility]. - Vital Signs Vital signs: Temp Pulse Resp BP Pulse Ox 97.6 F 82 18 111/69 96 04/03/18 17:38 04/03/18 17:38 04/03/18 17:38 04/03/18 17:38 04/03/18 17:38 - Laboratory Result Diagrams: 04/03/18 10:26 04/03/18 10:26 Laboratory results interpreted by me: 04/03/18 04/03/18 10:26 10:26 Chloride 108 H Total Bilirubin 1.6 H Urine Urobilinogen 2.0 H Discharge - Discharge Clinical Impression: abd pain, Pelvic pain, Probable Ruptured right ovarian cyst Condition: Good Disposition: HOME, SELF-CARE Instructions: Abdominal Pain ([facility]), Acetaminophen, Use of [id number] Ibuprofen ([facility]), Ovarian Cyst ([facility]), Pelvic Pain ([facility]) Additional Instructions: return to er if symptoms worsen plenty of fluids today see obgyn if persists Prescriptions: Ibuprofen [Motrin 600 mg Tablet] 600 mg PO Q8HP PRN #30 tablet PRN Reason: Forms: Return to Work Referrals: MENDY NEGRON MD [ACTIVE STAFF] - Follow up as needed
[2018-04-03 11:14] LABS: ALANINE AMINOTRANSFERASE 28 U/L (9-52); ALBUMIN 4.7 g/dL (3.5-5.0); ALKALINE PHOSPHATASE 74 U/L (38-126); ANION GAP 12 (5-19); ASPARTATE AMINO TRANSFERASE 31 U/L (14-36); BILIRUBIN,DIRECT 0.3 mg/dL (0.0-0.4); BILIRUBIN,TOTAL 1.6 mg/dL (0.2-1.3); BLOOD UREA NITROGEN 13 mg/dL (7-20); CARBON DIOXIDE 23 mmol/L (22-30); CHLORIDE 108 mmol/L (98-107); GLUCOSE 80 mg/dL (75-110); POTASSIUM 4.7 mmol/L (3.6-5.0); SODIUM 142.9 mmol/L (137-145); TOTAL PROTEIN 7.5 g/dL (6.3-8.2)
[2018-04-03 11:16] LABS: APPEARANCE,URINE CLEAR; BILIRUBIN,URINE NEGATIVE (NEGATIVE); COLOR,URINE YELLOW; GLUCOSE, URINE NEGATIVE (NEGATIVE); KETONES,URINE NEGATIVE (NEGATIVE); LEUKOCYTE ESTERASE,URINE NEGATIVE (NEGATIVE); NITRITE,URINE NEGATIVE (NEGATIVE); PROTEIN,URINE NEGATIVE (NEGATIVE); URINE SPECIFIC GRAVITY 1.016
[2018-04-03] MEDS ORDERED: ONDANSETRON 4 MG TAB.RAPDIS PO ONE (12:25)
[2018-04-03] MEDS ORDERED: AZITHROMYCIN 250 MG TABLET PO ONE (12:25)
[2018-04-03] MEDS ORDERED: CEFTRIAXONE INJ 1000 MG VIAL IV ONE (12:25)
[2018-04-03 12:35] LABS: BACTERIA (WET MOUNT) 3+ BACTERIA SEEN; T.VAGINALIS (WET MOUNT) NO TRICHOMONAS SEEN; WBCS (WET MOUNT) 2+ WBCS SEEN; YEAST (WET MOUNT) NO YEAST SEEN
[2018-04-03 14:03] LABS: CHLAM PCR NOT DETECTED (NOT DETECT); GON PCR NOT DETECTED (NOT DETECT)
--- NOTE | 2018-04-03 14:28 | RADIOLOGY REPORT (SQ) ---
EXAM DESCRIPTION: U/S NON OB PEL TV W/DOPPLER COMPLETED DATE/TIME: 04/03/2018 2:18 pm REASON FOR STUDY: pelvic pain and discharge COMPARISON: None. TECHNIQUE: Dynamic and static grayscale images acquired of the pelvis via transvaginal approach and recorded on PACS. Additional selected color Doppler and spectral images recorded. LIMITATIONS: None. FINDINGS: UTERUS: Contour normal. No mass. ENDOMETRIAL STRIPE: No focal or generalized thickening. No masses. CERVIX: No nabothian cysts. RIGHT OVARY AND DOPPLER: Normal size. No worrisome masses. Normal arterial vascular flow without evid ence for torsion. LEFT OVARY AND DOPPLER: Ovary not visualized. FREE FLUID: Moderate free fluid. OTHER: No other significant finding. MEASUREMENTS: UTERUS: 3.0 x 3.7 x 5.8 cm. ENDOMETRIAL STRIPE: 6 mm. RIGHT OVARY: 2.0 x 3.3 x 3.4 cm. LEFT OVARY: Not visualized. IMPRESSION: MODERATE FREE FLUID. LEFT OVARY NOT VISUALIZED. RIGHT OVARY NORMAL. TECHNICAL DOCUMENTATION: JOB ID: [id number] [employer]- All Rights Reserved Rev Reading location - IP/workstation name: [email or web address], [email or web address]
[2018-04-03] MEDS ORDERED: MAG HYDROX/AL HYDROX/SIMETH SUSP 30 ML UDCUP PO ONE (15:50)
[2018-04-03] MEDS ORDERED: LIDOCAINE 2% VISCOUS SOLN 20 ML UDCUP PO ONE (15:50)
--- NOTE | 2018-04-03 16:35 | RADIOLOGY REPORT (SQ) ---
EXAM DESCRIPTION: CT ABD/PELVIS WITH IV ONLY COMPLETED DATE/TIME: 04/03/2018 4:21 pm REASON FOR STUDY: moderate free fluid on US COMPARISON: Pelvic ultrasound 04/03/2018. TECHNIQUE: CT scan of the abdomen and pelvis performed using helical scanning technique with dynamic intravenous contrast injection. No oral contrast. Images reviewed with lung, soft tissue, and bone windows. Reconstructed coronal and sagittal MPR images reviewed. Delayed images for evaluation of the urinary system also acquired. All images stored on PACS. All CT scanners at this facility use dose modulation, iterative reconstruction, and/or weight based d osing when appropriate to reduce radiation dose to as low as reasonably achievable (ALARA). [facility]: Dose Right [facility]: CareDose [facility]: Dose Right [facility]: Teradose 4D [facility]: Thingies CONTRAST TYPE AND DOSE: contrast/concentration: Isovue 370.00 mg/ml; Total Contrast Delivered: 59.0 ml; Total Saline Delivered: 45.0 ml RENAL FUNCTION: BUN 13 creatinine 0.7. RADIATION DOSE: CT Rad equipment meets quality standard of care and radiation dose reduction techniq ues were employed. CTDIvol: 4.8 - 5.0 mGy. DLP: 501 mGy-cm.. LIMITATIONS: None. FINDINGS: LOWER CHEST: No significant findings. No nodules or infiltrates. LIVER: Normal size. No masses. No dilated ducts. SPLEEN: Normal size. No focal lesions. PANCREAS: No masses. No significant calcifications. No adjacent inflammation or peripancreatic fluid collections. Pancreatic duct not dilated. GALLBLADDER: No identified stones by CT criteria. No inflammatory changes to suggest cholecystitis. ADRENAL GLANDS: No significant masses or asymmetry. RIGHT KIDNEY AND URETER: No solid masses. No significant calcifications. No hydronephrosis or hyd roureter. LEFT KIDNEY AND URETER: No solid masses. No significant calcifications. No hydronephrosis or hydr oureter. AORTA AND VESSELS: No aneurysm. No dissection. Renal arteries, SMA, celiac without stenosis. RETROPERITONEUM: No retroperitoneal adenopathy, hemorrhage or masses. BOWEL AND PERITONEAL CAVITY: No masses or inflammatory changes. No free fluid or peritoneal masses. APPENDIX: Normal. PELVIS: Moderate free fluid. Irregular cystic-appearing structure located posterior to the right sam e of the uterus, measuring 1 x 2 cm. ABDOMINAL WALL: No masses. No hernias. BONES: No significant or acute findings. OTHER: No other significant finding. IMPRESSION: 1. MODERATE FREE FLUID IN THE PELVIS. IRREGULAR CYSTIC-APPEARING STRUCTURE POSTERIOR TO THE UTERUS. THESE FINDINGS COULD BE INDICATIVE OF AN OVARIAN CYST WITH RECENT RUPTURE. 2. NO OTHER SIGNIFICANT OR ACUTE FINDING IN THE ABDOMEN OR PELVIS ON CT SCAN WITH IV CONTRAST. TECHNICAL DOCUMENTATION: JOB ID: [id number] Quality ID # [id number]: Final reports with documentation of one or more dose reduction techniques (e.g., Au tomated exposure control, adjustment of the mA and/or kV according to patient size, use of iterative reconstruction technique) 2010 [employer]- All Rights Reserved Reading location - IP/workstation name: [email or web address]
[2018-04-03 17:40] VITALS: BP 111/69
== END 2018-04-03 17:40 | disposition home or self-care (01) ==
LOC: ER 09:47
DX: N83.201 Unspecified ovarian cyst, right side (principal); R10.9 Unspecified abdominal pain; R10.2 Pelvic and perineal pain
CPT/HCPCS: 99284; 36415; 87210; 83690; 85025; 81025; 80053; 81001; 87491; 87591; 76830; 93976; 74177; S0119; J3490; J0696

== ENCOUNTER 2018-04-05 12:05 | Emergency (ER) | payer SELFPAY ==
[2018-04-05] MEDS ORDERED: ASPIRIN 81 MG TABLET, CHEWABLE PO ONE (12:25)
[2018-04-05] MEDS ORDERED: LORAZEPAM 1 MG TABLET PO ONE (12:30)
--- NOTE | 2018-04-05 12:33 | ER Document Report ---
ED General - General Chief Complaint: Chest Pain Stated Complaint: CHEST PAIN, BREATHING PROBLEMS Time Seen by Provider: 04/05/18 12:25 Mode of Arrival: Ambulatory Information source: Patient Notes: 22-year-old female with history of pulmonary atresia presents with complaints of shortness of breath palpitations. Patient denies any fevers or chills notes the shortness of breath has been ongoing now for the past few days worsened today. Patient had surgery by Dr. Lundberg for similar episode a few years ago. She does note a history of anxiety and depression states she has not been treated for TRAVEL OUTSIDE OF THE [place] IN LAST 30 DAYS: No - HPI Onset: Other Onset/Duration: Intermittent, Worse Quality of pain: No pain Severity: Moderate Pain Level: Denies Associated symptoms: Shortness of breath Exacerbated by: Denies Relieved by: Denies Similar symptoms previously: Yes Recently seen / treated by doctor: No - Related Data Allergies/Adverse Reactions: No Known Allergies Allergy (Verified 04/05/18 12:06) Past Medical History - Social History Smoking Status: Never Smoker Cigarette use (# per day): No Chew tobacco use (# tins/day): No Smoking Education Provided: No Family History: Arthritis, CAD, COPD, CVA, DM, Hyperlipidemia, Hypertension Neurological Medical History: Reports: Hx Migraine Renal/ Medical History: Denies: Hx Peritoneal Dialysis Musculoskeltal Medical History: Reports Hx Musculoskeletal Deformity Past Surgical History: Reports: Hx Cardiac Catheterization, Hx Cardiac Surgery, Hx Open Heart Surgery - valve repair, Hx Oral Surgery - cleft palate and lip repair, Hx Orthopedic Surgery - hip surgery x 2 - Immunizations Immunizations up to date: Yes Hx Diphtheria, Pertussis, Tetanus Vaccination: Yes Review of Systems - Review of Systems Notes: REVIEW OF SYSTEMS: CONSTITUTIONAL : Denies fever, chills, or sweats. Denies recent illness. EENT: Denies eye, ear, throat, or mouth pain or symptoms. Denies nasal or sinus congestion or discharge. Denies throat, tongue, or mouth swelling or difficulty swallowing. CARDIOVASCULAR: Denies chest pain. Denies palpitations or racing or irregular heart beat. Denies ankle edema. RESPIRATORY: Admits shortness breath difficulty breathing GASTROINTESTINAL: Denies abdominal pain or distention. Denies nausea, vomiting , or diarrhea. Denies blood in vomitus, stools, or per rectum. Denies black, tarry stools. Denies constipation. GENITOURINARY: Denies difficulty urinating, painful urination, burning, frequency, blood in urine, or discharge. FEMALE GENITOURINARY: Denies vaginal bleeding, heavy or abnormal periods, irregular periods. Denies vaginal discharge or odor. MUSCULOSKELETAL: Denies back or neck pain or stiffness. Denies joint pain or swelling. SKIN: Denies rash, lesions or sores. HEMATOLOGIC : Denies easy bruising or bleeding. LYMPHATIC: Denies swollen, enlarged glands. NEUROLOGICAL: Denies confusion or altered mental status. Denies passing out or loss of consciousness. Denies dizziness or lightheadedness. Denies headache. Denies weakness or paralysis or loss of use of either side. Denies problems with gait or speech. Denies sensory loss, numbness, or tingling. Denies seizures. PSYCHIATRIC: Denies anxiety or stress. Denies depression, suicidal ideation, or homicidal ideation. ALL OTHER SYSTEMS REVIEWED AND NEGATIVE. PHYSICAL EXAMINATION: GENERAL: Well-appearing, well-nourished and in mild distress, patient is hyperventilating HEAD: Atraumatic, normocephalic. EYES: Pupils equal round and reactive to light, extraocular movements intact, conjunctiva are normal. ENT: Nares patent, oropharynx clear without exudates. Moist mucous membranes. NECK: Normal range of motion, supple without lymphadenopathy LUNGS: Breath sounds clear to auscultation bilaterally and equal. No wheezes rales or rhonchi. HEART: Regular rate and rhythm without murmurs ABDOMEN: Soft, nontender, nondistended abdomen. No guarding, no rebound. No masses appreciated. Female : deferred Musculoskeletal: Normal range of motion, no pitting or edema. No cyanosis. NEUROLOGICAL: Cranial nerves grossly intact. Normal speech, normal gait. Normal sensory, motor exams PSYCH: Normal mood, normal affect. SKIN: Midline incision scar noted Dictation was performed using [employer] voice recognition software Physical Exam - Vital signs Vitals: Temp Pulse Resp BP Pulse Ox 97.7 F 89 24 H 123/66 100 04/05/18 12:17 04/05/18 12:17 04/05/18 12:17 04/05/18 12:17 04/05/18 12:17 Course - Re-evaluation Re-evalutation: 04/05/18 12:32 Patient's presentation is most consistent with a panic attack however I have explained to the patient given her extensive history I will be testing her closely, I will contact Dr. Lundberg to discuss patient's case 04/05/18 14:44 Dr gallo notes that she sounded like a panic attack, but patient does have hx of cardiac issues, closure device placed in patent foramen, with some 04/05/18 14:49 Ativan resolved symptoms , will dc home and have Dr Alvarenga follow up After performing a Medical Screening Examination, I estimate there is LOW risk for RUPTURED ESOPHAGUS, PNEUMOTHORAX, PULMONARY EMBOLISM, ACUTE CORONARY SYNDROME, OR THORACIC AORTIC DISSECTION, thus I consider the discharge disposition reasonable. I have reevaluated this patient multiple times and no significant life threatening changes are noted. The patient and I have discussed the diagnosis and risks, and we agree with discharging home with close follow-up. We also discussed returning to the Emergency Department immediately if new or worsening symptoms occur. We have discussed the symptoms which are most concerning (e.g., bloody sputum, worsening pain or shortness of breath) that necessitate immediate return. - Vital Signs Vital signs: Temp Pulse Resp BP Pulse Ox 97.7 F 89 15 112/67 99 04/05/18 12:17 04/05/18 12:17 04/05/18 13:16 04/05/18 13:16 04/05/18 13:16 - Laboratory Result Diagrams: 04/05/18 12:35 04/05/18 12:35 Laboratory results interpreted by me: 04/05/18 12:35 Chloride 108 H Carbon Dioxide 18 L Calcium 10.5 H Total Bilirubin 2.4 H - Diagnostic Test Radiology reviewed: Image reviewed - Chest x-ray 2 view notes no acute abnormality, Reports reviewed Discharge - Discharge Clinical Impression: Anxiety, Congenital heart anomaly Condition: Stable Disposition: HOME, SELF-CARE Instructions: Anxiety ([facility]) Prescriptions: Lorazepam [Ativan 0.5 mg Tablet] 0.5 mg PO Q4 PRN #14 tab PRN Reason: Forms: Return to Work
[2018-04-05 13:07] LABS: ABSOLUTE EOSINOPHILS # (AUTO) 0.1 10^3/uL (0.0-0.6); ABSOLUTE LYMPHOCYTES (AUTO) 1.5 10^3/uL (0.5-4.7); ABSOLUTE MONOCYTES (AUTO) 0.4 10^3/uL (0.1-1.4); ABSOLUTE NEUT (AUTO) 4.4 10^3/uL (1.7-8.2); BASOPHILS % (AUTO) 0.7 % (0-2); HEMOGLOBIN 14.7 g/dL (12.0-15.5); LYMPHOCYTES % (AUTO) 23.3 % (13-45); MEAN CORPUSCULAR HEMOGLOBIN 31.5 pg (27.0-33.4); MEAN CORPUSCULAR HGB CONC 34.9 g/dL (32.0-36.0); MEAN CORPUSCULAR VOLUME 90 fl (80-97); MONOCYTES % (AUTO) 6.6 % (3-13); PLATELET COUNT 204 10^3/uL (150-450); RED BLOOD COUNT 4.66 10^6/uL (3.72-5.28); RED CELL DISTRIBUTION WIDTH 13.1 % (11.5-14.0); SEGMENTED NEUTROPHILS % (AUTO) 68.4 % (42-78); TOTAL CELLS COUNTED % (AUTO) 100 %; WHITE BLOOD COUNT 6.5 10^3/uL (4.0-10.5)
[2018-04-05 13:34] LABS: ALANINE AMINOTRANSFERASE 27 U/L (9-52); ALBUMIN 4.6 g/dL (3.5-5.0); ALKALINE PHOSPHATASE 70 U/L (38-126); ANION GAP 16 (5-19); ASPARTATE AMINO TRANSFERASE 29 U/L (14-36); BILIRUBIN,DIRECT 0.3 mg/dL (0.0-0.4); BILIRUBIN,TOTAL 2.4 mg/dL (0.2-1.3); BLOOD UREA NITROGEN 14 mg/dL (7-20); CALCIUM 10.5 mg/dL (8.4-10.2); CARBON DIOXIDE 18 mmol/L (22-30); CHLORIDE 108 mmol/L (98-107); CREATINE KINASE 110 U/L (30-135); GLUCOSE 79 mg/dL (75-110); POTASSIUM 3.8 mmol/L (3.6-5.0); SODIUM 142.2 mmol/L (137-145); TOTAL PROTEIN 7.5 g/dL (6.3-8.2)
--- NOTE | 2018-04-05 13:47 | RADIOLOGY REPORT (SQ) ---
EXAM DESCRIPTION: CHEST SINGLE VIEW COMPLETED DATE/TIME: 04/05/2018 1:28 pm REASON FOR STUDY: chest pain COMPARISON: 02/23/2017. EXAM PARAMETERS: NUMBER OF VIEWS: One view. TECHNIQUE: Single frontal radiographic view of the chest acquired. RADIATION DOSE: NA LIMITATIONS: None. FINDINGS: LUNGS AND PLEURA: No opacities, masses or pneumothorax. No pleural effusion. MEDIASTINUM AND HILAR STRUCTURES: No masses. Contour normal. HEART AND VASCULAR STRUCTURES: Heart normal in size. Normal vasculature. BONES: No acute findings. HARDWARE: Sternotomy wires. OTHER: No other significant finding. IMPRESSION: NO ACUTE RADIOGRAPHIC FINDING IN THE CHEST. TECHNICAL DOCUMENTATION: JOB ID: [id number] [employer]- All Rights Reserved Reading location - IP/workstation name: [email or web address]
[2018-04-05 13:50] LABS: TROPONIN I < 0.012 ng/mL
[2018-04-05 15:39] VITALS: BP 101/61
--- NOTE | 2018-04-05 21:51 | EKG REPORT ---
SEVERITY:- ABNORMAL ECG - SINUS TACHYCARDIA VENTRICULAR PREMATURE COMPLEX PROBABLE LEFT ATRIAL ABNORMALITY INCOMPLETE RIGHT BUNDLE BRANCH BLOCK : Confirmed by: Noy Barker MD 05-Apr-2018 21:50:27
== END 2018-04-05 15:15 | disposition home or self-care (01) ==
LOC: ER 12:05
DX: F41.9 Anxiety disorder, unspecified (principal); Q24.8 Other specified congenital malformations of heart; R07.9 Chest pain, unspecified; R06.02 Shortness of breath
CPT/HCPCS: 36415; 71045; 80053; 82550; 82553; 84484; 85025; 93005; 93010; 99285

== ENCOUNTER 2018-06-14 11:43 | Emergency (ER) | payer SELFPAY ==
[2018-06-14] MEDS ORDERED: KETOROLAC TROMETHAMINE 60 MG/2 ML SDV IM ONE (12:16)
--- NOTE | 2018-06-14 12:18 | ER Document Report ---
ED General Pain - General Chief Complaint: Low Back Pain Stated Complaint: BACK PAIN HEADACHE Time Seen by Provider: 06/14/18 12:14 Mode of Arrival: Ambulatory Information source: Patient Notes: Chief complaint: Left lower back pain History of complain:( obtained from----patient) 22 years old female presents today with one-week history of left lower back pain, associated with increasing pain on movement. Denies any abdominal pain denies any dysuria frequency urgency. She also complained of a history of migraine or headache and having headache over the right periorbital and frontal region. For the last 3 days. No fever chills or other constitutional symptoms. Onset: As above Duration: As above Severity: Moderate Quality: Sharp Context: Unknown Exacerbating factor and relieving factors: Change of position REVIEW OF SYSTEMS: CONSTITUTIONAL : Denies fever, chills, or sweats. Denies recent illness. EENT: Denies eye, ear, throat, or mouth pain or symptoms. Denies nasal or sinus congestion or discharge. Denies throat, tongue, or mouth swelling or difficulty swallowing. CARDIOVASCULAR: Denies chest pain. Denies palpitations or racing or irregular heart beat. Denies ankle edema. RESPIRATORY: Denies cough, cold, or chest congestion. Denies shortness of breath, difficulty breathing, or wheezing. GASTROINTESTINAL: Denies distention. Denies nausea, vomiting, or diarrhea. Denies blood in vomitus, stools, or per rectum. Denies black, tarry stools. Denies constipation. GENITOURINARY: Denies difficulty urinating, painful urination, burning, frequency, blood in urine, or discharge. FEMALE GENITOURINARY: Denies vaginal bleeding, heavy or abnormal periods, irregular periods. Denies vaginal discharge or odor. MUSCULOSKELETAL: Denies back or neck pain or stiffness. Denies joint pain or swelling. SKIN: Denies rash, lesions or sores. HEMATOLOGIC : Denies easy bruising or bleeding. LYMPHATIC: Denies swollen, enlarged glands. NEUROLOGICAL: Denies confusion or altered mental status. Denies passing out or loss of consciousness. Denies dizziness or lightheadedness. Denies headache. Denies weakness or paralysis or loss of use of either side. Denies problems with gait or speech. Denies sensory loss, numbness, or tingling. Denies seizures. PSYCHIATRIC: Denies anxiety or stress. Denies depression, suicidal ideation, or homicidal ideation. ALL OTHER SYSTEMS REVIEWED AND NEGATIVE. PHYSICAL EXAMINATION: GENERAL: Well-appearing, well-nourished and in no acute distress. HEAD: Atraumatic, normocephalic. EYES: Pupils equal round and reactive to light, extraocular movements intact, conjunctiva are normal. ENT: Nares patent, oropharynx clear without exudates. Moist mucous membranes. Periorbital and frontal tenderness noted NECK: Normal range of motion, supple without lymphadenopathy LUNGS: Breath sounds clear to auscultation bilaterally and equal. No wheezes rales or rhonchi. HEART: Regular rate and rhythm without murmurs ABDOMEN: Soft, nontender, nondistended abdomen. No guarding, no rebound. No masses appreciated. Examination of genitals-deferred Musculoskeletal: Normal range of motion, no pitting or edema. No cyanosis. NEUROLOGICAL: Cranial nerves grossly intact. Normal speech, normal gait. Normal sensory, motor exams Left sacroiliac joints tender on palpation, able to flex and extend the hip within normal range without major discomfort. PSYCH: Normal mood, normal affect. SKIN: Warm, Dry, normal turgor, no rashes or lesions noted. Dictation was performed using [employer] voice recognition software TRAVEL OUTSIDE OF THE [place] IN LAST 30 DAYS: No - HPI Notes: Dictated - Related Data Allergies/Adverse Reactions: No Known Allergies Allergy (Verified 04/05/18 12:06) Past Medical History - Social History Smoking Status: Never Smoker Cigarette use (# per day): No Chew tobacco use (# tins/day): No Smoking Education Provided: No Frequency of alcohol use: Rare Drug Abuse: None Lives with: Family Family History: Reviewed & Not Pertinent, Arthritis, CAD, COPD, CVA, DM, Hyperlipidemia, Hypertension Patient has suicidal ideation: No Patient has homicidal ideation: No Neurological Medical History: Reports: Hx Migraine Renal/ Medical History: Denies: Hx Peritoneal Dialysis Musculoskeletal Medical History: Reports Hx Musculoskeletal Deformity Past Surgical History: Reports: Hx Cardiac Catheterization, Hx Cardiac Surgery, Hx Open Heart Surgery - valve repair, Hx Oral Surgery - cleft palate and lip repair, Hx Orthopedic Surgery - hip surgery x 2 - Immunizations Immunizations up to date: Yes Hx Diphtheria, Pertussis, Tetanus Vaccination: Yes Review of Systems - Review of Systems Notes: Dictated Physical Exam - Vital signs Vitals: Temp Pulse Resp BP Pulse Ox 97.7 F 65 18 129/73 H 98 06/14/18 11:50 06/14/18 11:50 06/14/18 11:50 06/14/18 11:50 06/14/18 11:50 - Notes Notes: Dictated Course - Vital Signs Vital signs: Temp Pulse Resp BP Pulse Ox 97.7 F 65 18 129/73 H 98 06/14/18 11:50 06/14/18 11:50 06/14/18 11:50 06/14/18 11:50 06/14/18 11:50 Discharge - Discharge Clinical Impression: Sacroiliitis Headache Qualifiers: Headache type: unspecified Headache chronicity pattern: acute headache Intractability: not intractable Qualified Code(s): R51 - Headache Condition: Fair Disposition: HOME, SELF-CARE Instructions: Low Back Pain ([facility]), Muscle Strain ([facility]), Headache ([facility]) Prescriptions: Ketorolac Tromethamine [Toradol 10 mg Tablet] 10 mg PO Q8HP PRN #14 tablet PRN Reason: Baclofen [Baclofen 10 mg Tablet] 10 mg PO TID #30 tablet Prednisone 5 mg PO ASDIR 6 Days #1 tab.ds.pk
[2018-06-14 13:26] LABS: APPEARANCE,URINE CLEAR; BILIRUBIN,URINE NEGATIVE (NEGATIVE); COLOR,URINE YELLOW; GLUCOSE, URINE NEGATIVE (NEGATIVE); KETONES,URINE NEGATIVE (NEGATIVE); LEUKOCYTE ESTERASE,URINE NEGATIVE (NEGATIVE); NITRITE,URINE NEGATIVE (NEGATIVE); PROTEIN,URINE NEGATIVE (NEGATIVE); URINE SPECIFIC GRAVITY 1.011; UROBILINOGEN,URINE NEGATIVE mg/dL (<2.0)
[2018-06-14 14:15] VITALS: BP 104/66
== END 2018-06-14 14:15 | disposition home or self-care (01) ==
LOC: ER 11:43
DX: M46.1 Sacroiliitis, not elsewhere classified (principal); M54.5 Low back pain; R51 Headache
CPT/HCPCS: 99283; 96372; 36415; 84703; 81001; J1885

== ENCOUNTER → 2018-08-09 | Outpatient (CLI) | payer SELFPAY ==
[2018-08-09 16:39] LABS: ABSOLUTE BASOPHILS # (AUTO) 0.1 10^3/uL (0.0-0.2); ABSOLUTE EOSINOPHILS # (AUTO) 0.1 10^3/uL (0.0-0.6); ABSOLUTE LYMPHOCYTES (AUTO) 1.3 10^3/uL (0.5-4.7); ABSOLUTE MONOCYTES (AUTO) 0.4 10^3/uL (0.1-1.4); BASOPHILS % (AUTO) 0.9 % (0-2); EOSINOPHILS % (AUTO) 1.7 % (0-6); HEMATOCRIT 41.4 % (36.0-47.0); HEMOGLOBIN 14.2 g/dL (12.0-15.5); MEAN CORPUSCULAR HEMOGLOBIN 31.7 pg (27.0-33.4); MEAN CORPUSCULAR HGB CONC 34.4 g/dL (32.0-36.0); MEAN CORPUSCULAR VOLUME 92 fl (80-97); MONOCYTES % (AUTO) 6.3 % (3-13); PLATELET COUNT 245 10^3/uL (150-450); RED BLOOD COUNT 4.49 10^6/uL (3.72-5.28); RED CELL DISTRIBUTION WIDTH 12.7 % (11.5-14.0); SEGMENTED NEUTROPHILS % (AUTO) 72.1 % (42-78); TOTAL CELLS COUNTED % (AUTO) 100 %
--- NOTE | 2018-08-09 22:41 | EKG REPORT ---
SEVERITY:- ABNORMAL ECG - SINUS RHYTHM INCOMPLETE RIGHT BUNDLE BRANCH BLOCK : Confirmed by: Noy Barker MD 09-Aug-2018 22:39:44
--- NOTE | 2018-08-10 21:17 | [facility] ---
[facility] NAME: PIETRO AVILES [facility] REFERENCE #: [id number] : 1995 DATE OF VISIT: 08/09/2018 PRIMARY CARE: [facility] CHIEF COMPLAINT: Follow up complex heart disease history. The patient called and asked if she could come to our [facility] today. She says that for a few months she has felt not right with fatigue, shortness of breath, and feeling that she bruises easily. She says she has heavy menses. Occasionally she will feel a chest pain. Sometimes she feels lightheaded and nauseated. Occasionally she will feel her heart skip or flutter. She has not fainted. She had felt that the time had come to address this so she called and asked if she could be added onto our [facility]. She denies taking any medication. She says she no longer takes her aspirin. ALLERGIES TO MEDICATION: None. SOCIAL HISTORY: Lives with her boyfriend in [place]. She is sexually active and uses barrier methods for contraception. She does not smoke. 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 Status post pulmonary outflow tract enlargement with a surgical patch. She had [id number] shunting across her residual atrioseptal defect. Atrioseptal defect was closed by Amplatzer ASD occluder by Dr. Faria. After that she did still have some residual atrial [id number] shunt by bubble echo done in 2014. Lost a in December 2017. My notes indicate that in the past she has had symptoms suggesting common orthostatic intolerance, vascular headaches, and postural lightheadedness. At one visit she was taking atenolol and thought that it helped her headaches and sense of tachycardia. REVIEW OF SYSTEMS: She is positive for the symptoms noted in the HPI and negative for coughing, vomiting, diarrhea, dysuria, musculoskeletal pains. PHYSICAL EXAMINATION: Weight 121 pounds, height 61 inches, oximetry 100%, heart rate 50, blood pressure 119/69. General exam is a well-appearing pink young lady with good color and perfusion. Thyroid not enlarged or nodular. Lungs clear bilateral. Precordial activity normal. Cardiac auscultation reveals a pulmonary ejection click and no significant murmurs. Abdomen reveals no hepatomegaly, is nontender. Extremities are without edema or acrocyanosis. Gait and coordination are normal. Twelve-lead electrocardiogram shows an incomplete right bundle branch block pattern but normal Q-T intervals. Echocardiogram performed: See report. IMPRESSION: 1. STATUS POST RIGHT VENTRICULAR OUTFLOW TRACT RECONSTRUCTION SURGICALLY WITH PULMONARY ATRESIA WITH INTACT VENTRICULAR SEPTUM AND HYPOPLASTIC RIGHT HEART SYNDROME. 2. STATUS POST AMPLATZ ATRIOSEPTAL OCCLUDER FOR RESIDUAL [id number] ATRIAL SHUNTING. 3. PERSISTENT RESIDUAL ECHO CONTRAST BUBBLE SHUNTING RIGHT TO LEFT AFTER AMPLATZER DEVICE. 4. EXCELLENT OXIMETRY TODAY 100%. 5. ECHO SHOWS A SLIGHTLY SMALL RIGHT VENTRICLE WITH SLIGHTLY SMALL RIGHT ATRIUM BUT HER INFERIOR VENA CAVA IS NOT DISTENDED. THE AMPLATZER DEVICE IS IN IDEAL LOCATION. THE LV SIZE IS TOP NORMAL AND THE EJECTION FRACTION OF THE LV IS GOOD AT 72%. 6. SHE HAS UNRESTRICTED PULMONARY VALVE REGURGITATION EXPECTED, BUT SHE DOES NOT HAVE PULMONARY HYPERTENSION OR RESIDUAL PULMONIC STENOSIS. 7. THERE IS TRIAL AORTIC REGURGITATION. I sent her to the lab for basic labs, CBC, and thyroid function. I will call her later this afternoon with our results. I suspect that she may just be having symptoms of common orthostatic intolerance and may respond well to very low-dose beta theresa, perhaps some Florinef, but I will call her with the lab results and we shall make a treatment disposition. ESTEBAN OLMOS MD [id number] PHY#: [id number] ID: [id number] JOB#: [id number] ACCT: [id number] cc:ESTEBAN OLMOS MD > [facility]
--- NOTE | 2018-08-10 21:26 | NONINVASIVE CARDIOLOGY REPORT ---
ECHOCARDIOGRAPHY REPORT PATIENT NAME: PIETRO AVILES ROOM#: DATE OF SERVICE: 08/09/2018 : 1995 REFERRING MD: ORDER #: [id number] INDICATION: Symptoms of fatigue and shortness of breath in a patient with complex congenital heart disease. [facility] REFERENCE: [id number] REPORT Comparison is made to the information from an echocardiogram of 12/29/2016. There is no significant difference. This echo shows repair of pulmonary atresia with intact ventricular septum with RV outflow tract reconstructed without pulmonary stenosis. There is free flow pulmonary regurgitation. The right ventricle is slightly smaller than normal. The right atrium is larger than normal, with a slightly small tricuspid orifice. The inferior vena cava is not distended. Left ventricular size is top-normal with an ejection fraction of 72%. The atrial septum is intact, with an Amplatzer occluder in the atrial septal defect. A bubble contrast echo was not performed to check for small right to left atrial shunt. The morphology of the aortic and mitral valves appears normal. There is no abnormal pericardial effusion. The ascending aorta and aortic root are within normal limits. The left coronary artery has a normal origin. Pulmonary arteries appear normal. Doppler velocities are normal through the aortic and pulmonary valves. The tricuspid regurgitant jet suggests no pulmonary stenosis or pulmonary artery pressure elevation. Color mapping shows the free open pulmonary valve regurgitation and very mild aortic valve regurgitation and normal tricuspid regurgitation. Doppler velocities show normal aortic, pulmonic and mid tricuspid regurgitant position. CARDIAC DIMENSIONS IN CENTIMETERS: LVED was 5.3, LVES 3.1, LV wall 0.8, septum 0.7, left atrium 2.9, aortic root 2.9, tricuspid annulus 2.2. DOPPLER VELOCITIES IN METERS PER SECOND: Aorta 1.0, pulmonary 0.68, tricuspid regurgitation 1.76. Aortic arch appears normal. FINAL IMPRESSION: Good result after two ventricle repair of pulmonary atresia with intact septum. INTERPRETING PHYSICIAN: ESTEBAN OLMOS MD /: [id number] TT: [id number] ID: [id number] /: [id number] TD: [id number] JOB: [id number] cc:ESTEBAN OLMOS MD [facility], [facility] >
== END ==
LOC: PC 14:26
PROVIDERS: ATTEND Pediatrics Pediatric Cardiology
DX: Q25.5 Atresia of pulmonary artery (principal); R53.83 Other fatigue
CPT/HCPCS: 36415; 84443; 85025; 93005; 93010; 93304; 93321; 93325

== ENCOUNTER 2018-09-01 11:44 | Emergency (ER) | payer SELFPAY ==
[2018-09-01 11:59] VITALS: BP 102/62
--- NOTE | 2018-09-01 13:50 | ER Document Report ---
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 Patient does have a history of orthostatic intolerance, vascular headaches and postural lightheadedness. Patient presents to the emergency room today with chest tightness on and off since 3:57 AM. Patient states that now seems to have moved to her back. Patient describes it as a tightness. She denies any recent illnesses. She denies any fever. She is followed by Dr. Alvarenga of cardiology. TRAVEL OUTSIDE OF THE [place] IN LAST 30 DAYS: No - Related Data Allergies/Adverse Reactions: No Known Allergies Allergy (Verified 04/05/18 12:06) Past Medical History - Social History Family history: None Neurological Medical History: Reports: Hx Migraine Renal/ Medical History: Denies: Hx Peritoneal Dialysis Musculoskeltal Medical History: Reports Hx Musculoskeletal Deformity Past Surgical History: Reports: Hx Cardiac Catheterization, Hx Cardiac Surgery, Hx Open Heart Surgery - valve repair, Hx Oral Surgery - cleft palate and lip repair, Hx Orthopedic Surgery - hip surgery x 2 - Immunizations Immunizations up to date: Yes Hx Diphtheria, Pertussis, Tetanus Vaccination: Yes Physical Exam - Vital signs Vitals: Temp Pulse Resp BP Pulse Ox 98.3 F 80 16 102/62 97 09/01/18 11:56 09/01/18 11:56 09/01/18 11:56 09/01/18 11:56 09/01/18 11:56 Course - Vital Signs Vital signs: Temp Pulse Resp BP Pulse Ox 98.3 F 80 16 102/62 97 09/01/18 11:56 09/01/18 11:56 09/01/18 11:56 09/01/18 11:56 09/01/18 11:56
[2018-09-01 14:10] LABS: ABSOLUTE EOSINOPHILS # (AUTO) 0.1 10^3/uL (0.0-0.6); ABSOLUTE LYMPHOCYTES (AUTO) 1.4 10^3/uL (0.5-4.7); ABSOLUTE MONOCYTES (AUTO) 0.4 10^3/uL (0.1-1.4); ABSOLUTE NEUT (AUTO) 5.3 10^3/uL (1.7-8.2); BASOPHILS % (AUTO) 0.6 % (0-2); EOSINOPHILS % (AUTO) 1.5 % (0-6); HEMATOCRIT 43.2 % (36.0-47.0); HEMOGLOBIN 15.3 g/dL (12.0-15.5); LYMPHOCYTES % (AUTO) 19.8 % (13-45); MEAN CORPUSCULAR HEMOGLOBIN 32.3 pg (27.0-33.4); MEAN CORPUSCULAR HGB CONC 35.3 g/dL (32.0-36.0); MEAN CORPUSCULAR VOLUME 91 fl (80-97); MONOCYTES % (AUTO) 5.7 % (3-13); PLATELET COUNT 210 10^3/uL (150-450); RED BLOOD COUNT 4.73 10^6/uL (3.72-5.28); RED CELL DISTRIBUTION WIDTH 12.8 % (11.5-14.0); SEGMENTED NEUTROPHILS % (AUTO) 72.4 % (42-78); TOTAL CELLS COUNTED % (AUTO) 100 %; WHITE BLOOD COUNT 7.3 10^3/uL (4.0-10.5)
[2018-09-01 14:28] LABS: ALANINE AMINOTRANSFERASE 19 U/L (9-52); ALBUMIN 4.4 g/dL (3.5-5.0); ALKALINE PHOSPHATASE 72 U/L (38-126); ANION GAP 11 (5-19); ASPARTATE AMINO TRANSFERASE 27 U/L (14-36); BILIRUBIN,DIRECT 0.3 mg/dL (0.0-0.4); BILIRUBIN,TOTAL 2.4 mg/dL (0.2-1.3); BLOOD UREA NITROGEN 10 mg/dL (7-20); CALCIUM 9.6 mg/dL (8.4-10.2); CARBON DIOXIDE 26 mmol/L (22-30); CHLORIDE 103 mmol/L (98-107); GLUCOSE 98 mg/dL (75-110); POTASSIUM 4.2 mmol/L (3.6-5.0); TOTAL PROTEIN 7.3 g/dL (6.3-8.2)
--- NOTE | 2018-09-01 18:37 | ER Document Report ---
ED General - General Chief Complaint: Chest Pain Stated Complaint: CHEST PAIN, BACK PAIN Time Seen by Provider: 09/01/18 13:34 Mode of Arrival: Ambulatory TRAVEL OUTSIDE OF THE [place] IN LAST 30 DAYS: No - HPI Patient complains to provider of: Chest wall pain left shoulder pain Notes: Patient coming in for evaluation of chest wall pain. Patient was evaluated by RME physician note is posted below. 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 Patient does have a history of orthostatic intolerance, vascular headaches and postural lightheadedness. Patient presents to the emergency room today with chest tightness on and off since 3:57 AM. Patient states that now seems to have moved to her back. Patient describes it as a tightness. She denies any recent illnesses. She denies any fever. She is followed by Dr. Alvarenga of cardiology. Patient confirms with this patient denies any new physical activity denies any travel denies any fever chills nausea by diarrhea. Patient resting healthy upon my evaluation states pain is increased with movement of her shoulder - Related Data Allergies/Adverse Reactions: No Known Allergies Allergy (Verified 04/05/18 12:06) Past Medical History - General Information source: Patient - Social History Smoking Status: Never Smoker Family History: Reviewed & Not Pertinent, Arthritis, CAD, COPD, CVA, DM, Hyperlipidemia, Hypertension Patient has suicidal ideation: No Patient has homicidal ideation: No Neurological Medical History: Reports: Hx Migraine Renal/ Medical History: Denies: Hx Peritoneal Dialysis Musculoskeletal Medical History: Reports Hx Musculoskeletal Deformity Past Surgical History: Reports: Hx Cardiac Catheterization, Hx Cardiac Surgery, Hx Open Heart Surgery - valve repair, Hx Oral Surgery - cleft palate and lip repair, Hx Orthopedic Surgery - hip surgery x 2 - Immunizations Immunizations up to date: Yes Hx Diphtheria, Pertussis, Tetanus Vaccination: Yes Review of Systems - Review of Systems Constitutional: No symptoms reported EENT: No symptoms reported Cardiovascular: Chest pain Respiratory: No symptoms reported Gastrointestinal: No symptoms reported Genitourinary: No symptoms reported Female Genitourinary: No symptoms reported Musculoskeletal: No symptoms reported Skin: No symptoms reported Hematologic/Lymphatic: No symptoms reported Neurological/Psychological: No symptoms reported -: Yes All other systems reviewed and negative Physical Exam - Vital signs Vitals: Temp Pulse Resp BP Pulse Ox 98.3 F 80 16 102/62 97 09/01/18 11:56 09/01/18 11:56 09/01/18 11:56 09/01/18 11:56 09/01/18 11:56 Interpretation: Normal - General General appearance: Appears well, Alert - HEENT Head: Normocephalic, Atraumatic Eyes: Normal Pupils: PERRL - Respiratory Respiratory status: No respiratory distress Chest status: Tender - Tenderness to palpation of chest wall Breath sounds: Normal Chest palpation: Normal - Cardiovascular Rhythm: Regular Heart sounds: Normal auscultation Murmur: No - Abdominal Inspection: Normal Distension: No distension Bowel sounds: Normal Tenderness: Nontender Organomegaly: No organomegaly - Back Back: Normal, Nontender - Extremities General upper extremity: Normal inspection, Tender - Tenderness to palpation of the left shoulder along the clavicle region and also tenderness range of motion of the left shoulder., Normal color, Normal ROM, Normal temperature General lower extremity: Normal inspection, Nontender, Normal color, Normal ROM , Normal temperature, Normal weight bearing. No: Brenda's sign - Neurological Neuro grossly intact: Yes Cognition: Normal Orientation: AAOx4 Bonny Coma Scale Eye Opening: Spontaneous Bonny Coma Scale Verbal: Oriented Bonny Coma Scale Motor: Obeys Commands Bonny Coma Scale Total: 15 Speech: Normal Motor strength normal: LUE, RUE, LLE, RLE Sensory: Normal - Psychological Associated symptoms: Normal affect, Normal mood - Skin Skin Temperature: Warm Skin Moisture: Dry Skin Color: Normal Course - Re-evaluation Re-evalutation: 09/02/18 00:17 The patient has atypical chest pain as the patient's chest pain is not suggestive of pulmonary embolus, cardiac ischemia, aortic dissection, or other serious etiology. Given the extremely low risk of these diagnoses further testing and evaluation for these possibilities does not appear to be indicated at this time. The patient has been instructed to return if the symptoms worsen or change in any way. Discussed with pediatric cardiology non linear editor at [facility] agrees her assessment at this time. EKG does not show any acute findings laboratory studies not show any acute findings. 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 - Vital Signs Vital signs: Temp Pulse Resp BP Pulse Ox 98.3 F 80 16 102/62 97 09/01/18 11:56 09/01/18 11:56 09/01/18 11:56 09/01/18 11:56 09/01/18 11:56 - Laboratory Result Diagrams: 09/01/18 13:56 09/01/18 13:56 Laboratory results interpreted by me: 09/01/18 13:56 Total Bilirubin 2.4 H Discharge - Discharge Clinical Impression: Chest wall pain Condition: Good Disposition: HOME, SELF-CARE Instructions: Anti-Inflammatory Medication ([facility]), Chest Wall Pain ([facility]) Additional Instructions: I discussed your case with the car barn laborer non linear editor at [facility]. At this time your symptoms look more consistent with chest wall pain. Recommend anti- inflammatory medications to help out with your pain. Please follow-up with your doctor as needed return to ER symptoms worsen. Prescriptions: Ibuprofen [Motrin 600 mg Tablet] 600 mg PO Q8HP PRN #21 tablet PRN Reason: Forms: Return to Work
--- NOTE | 2018-09-01 22:20 | EKG REPORT ---
SEVERITY:- ABNORMAL ECG - SINUS RHYTHM INCOMPLETE RIGHT BUNDLE BRANCH BLOCK : Confirmed by: Noy Barker MD 01-Sep-2018 22:19:40
== END 2018-09-01 18:59 | disposition home or self-care (01) ==
LOC: ER 11:44
DX: M25.512 Pain in left shoulder (principal); R07.89 Other chest pain
CPT/HCPCS: 36415; 80053; 84484; 84702; 85025; 93005; 93010; 99285

== ENCOUNTER 2019-01-27 17:28 | Emergency (ER) | payer SELFPAY ==
--- NOTE | 2019-01-27 19:13 | ER Document Report ---
ED Hand/Wrist Injury - General Chief Complaint: Hand Injury Stated Complaint: HAND LACERATION Time Seen by Provider: 01/27/19 18:59 Mode of Arrival: Ambulatory Information source: Patient Notes: 23-year-old female presents to ED for complaint of laceration to the left hand between the thumb and the second finger. She states she was trying to cut a paper with a knife and stabbed herself in the hand. The laceration happened about 330. She states that her last tetanus was last year. She is alert oriented respirations regular and unlabored speaking in full sentences. Her bleeding is controlled. TRAVEL OUTSIDE OF THE [place] IN LAST 30 DAYS: No - HPI Injury to: Hand Onset: This afternoon Where: Home Timing: Still present Quality of pain: Sharp Severity: Moderate Pain Level: 4 Context: Laceration - Related Data Allergies/Adverse Reactions: No Known Allergies Allergy (Verified 01/27/19 17:53) Past Medical History - Social History Smoking Status: Never Smoker Frequency of alcohol use: None Drug Abuse: None Family History: Reviewed & Not Pertinent, Arthritis, CAD, COPD, CVA, DM, Hyperlipidemia, Hypertension Patient has suicidal ideation: No Patient has homicidal ideation: No Neurological Medical History: Reports: Hx Migraine Renal/ Medical History: Denies: Hx Peritoneal Dialysis Musculoskeletal Medical History: Reports Hx Musculoskeletal Deformity Past Surgical History: Reports: Hx Abdominal Surgery - hernia repair, Hx Cardiac Catheterization, Hx Cardiac Surgery, Hx Open Heart Surgery - valve repair, Hx Oral Surgery - cleft palate and lip repair, Hx Orthopedic Surgery - hip surgery x 2 - Immunizations Immunizations up to date: Yes Hx Diphtheria, Pertussis, Tetanus Vaccination: Yes Review of Systems - Review of Systems Constitutional: No symptoms reported EENT: No symptoms reported Cardiovascular: No symptoms reported Respiratory: No symptoms reported Gastrointestinal: No symptoms reported Genitourinary: No symptoms reported Female Genitourinary: No symptoms reported Musculoskeletal: No symptoms reported Skin: Other - Small 1-1/2 cm laceration to the left hand between the thumb and second finger Hematologic/Lymphatic: No symptoms reported Neurological/Psychological: No symptoms reported Physical Exam - Vital signs Vitals: Temp Pulse Resp BP Pulse Ox 97.5 F 88 14 101/61 97 01/27/19 17:58 01/27/19 17:58 01/27/19 17:58 01/27/19 17:58 01/27/19 17:58 Interpretation: Normal - General General appearance: Appears well, Alert - HEENT Head: Normocephalic, Atraumatic Eyes: Normal Pupils: PERRL - Respiratory Respiratory status: No respiratory distress Chest status: Nontender Breath sounds: Normal Chest palpation: Normal - Cardiovascular Rhythm: Regular Heart sounds: Normal auscultation Murmur: No - Abdominal Inspection: Normal Distension: No distension Bowel sounds: Normal Tenderness: Nontender Organomegaly: No organomegaly - Back Back: Normal, Nontender - Extremities General upper extremity: Normal inspection, Nontender, Normal color, Normal ROM, Normal temperature General lower extremity: Normal inspection, Nontender, Normal color, Normal ROM, Normal temperature, Normal weight bearing. No: Brenda's sign Hand: Tender, Laceration, No evidence of human bite, No evidence of FB - Neurological Neuro grossly intact: Yes Cognition: Normal Orientation: AAOx4 Lenore Coma Scale Eye Opening: Spontaneous Bonny Coma Scale Verbal: Oriented Bonny Coma Scale Motor: Obeys Commands Bonny Coma Scale Total: 15 Speech: Normal Motor strength normal: LUE, RUE, LLE, RLE Sensory: Normal - Psychological Associated symptoms: Normal affect, Normal mood - Skin Skin Temperature: Warm Skin Moisture: Dry Skin Color: Normal Skin irregularity: Laceration Location of irregularity: Extremities - Left hand between the thumb and second finger 1.5 cm superficial laceration approximated Course - Re-evaluation Re-evalutation: 01/27/19 21:51 Patient was instructed to keep the hand clean to take the Keflex as instructed and to follow-up with primary doctor or ER for any increase in pain swelling or redness. Patient was instructed not to use any antibiotic ointment as this would the nature of the glue. Patient was instructed not to pick at the glue but allowed to wear off on its own. Patient was discharged home after she verbalized understanding and agreement with treatment plan. - Vital Signs Vital signs: Temp Pulse Resp BP Pulse Ox 97.6 F 85 16 103/60 97 01/27/19 19:26 01/27/19 19:26 01/27/19 19:26 01/27/19 19:26 01/27/19 19:26 Procedures - Laceration/Wound Repair Left Hand Time completed: 19:10 Wound length (cm): 1.5 Wound's Depth, Shape: Superficial, Linear Laceration pre-procedure: Sterile PPE donned, Shur-Clens applied Anesthetic type: Other - 0 Volume Anesthetic (mLs): 0 Wound explored: Contaminated Irrigated w/ Saline (mLs): 30 Wound Repaired With: Dermabond Layer Closure?: No Post-procedure NV exam normal: Yes Complications: No Discharge - Discharge Clinical Impression: Laceration of left hand Qualifiers: Encounter type: initial encounter Foreign body presence: without foreign body Qualified Code(s): S61.412A - Laceration without foreign body of left hand, initial encounter Condition: Stable Disposition: HOME, SELF-CARE Instructions: Family Physicians / Practices Additional Instructions: Hand Laceration A laceration on the hand can present special problems. It may be difficult to keep the wound dry. Motion of the fingers can disturb the healing edges. Your work may involve exposure to damaging chemicals or water. Keep the wound clean and dry. If you can't keep the cut dry, undisturbed, and free of chemical exposure, please discuss this with the doctor. If any water or chemical gets onto the dressing, remove it, blot the wound dry, then apply a fresh bandage. Dressings should be changed every day. If you feel the stitches pulling as you move the hand, a splint or other form of protection is needed. If any signs of infection occur (swelling, redness, increasing tenderness, red streaks, tender lumps in the armpit, or fever), see the doctor immediately. Dermabond (Skin Adhesive Closure) Skin adhesive (such as Dermabond) is a quick-drying glue that remains slightly flexible while it holds wound edges together. It can substitute for stitches on some cuts. The film will usually fall off the skin after 5 to 10 days. Keep the wound area clean and dry. Do not soak or scrub the wound. Don't swim. You can shower briefly after 24 hours. Gently blot the area dry with a soft towel. Don't apply ointments. If there is a dressing, change it immediately if it gets wet. Do not place tape directly over the adhesive film, because the tape may pull the film off your skin as you remove it. Don't bump the wound area. If there's risk of injury, keep the area well- padded. Avoid stretching of the skin. Do not scratch or pick at the adhesive film. Avoid prolonged exposure to sunlight or tanning lamps. Return if there is increasing pain, swelling, redness, or drainage, or if the wound edges seem to open or separate. Cephalexin The antibiotic you've been prescribed is a member of the cephalosporin class. This type of antibiotic covers a wide variety of infections, including those of the skin, lungs, and urinary tract. It's useful for staph infections. This antibiotic is slightly similar to the penicillin family. In rare cases, a person who is allergic to penicillin will also be allergic to this medication. If you have had a severe allergic reaction to penicillin, and have not taken this antibiotic since that time, notify your doctor. Antibiotics which cover many germs ("broad spectrum" antibiotics) are more likely to cause diarrhea or "yeast" infections. Women prone to vaginal yeast problems may suffer an attack after taking this antibiotic. In infants, oral thrush (white spots "stuck" on the cheek) or yeast diaper rash may result. See your doctor if these problems occur. Call at once if you develop itching, hives, shortness of breath, or lightheadedness. Acetaminophen Acetaminophen may be taken for pain relief or fever control. It's much safer than aspirin, offering a wider range of "safe" dosages. It is safe during . Some brand names are Tylenol, Panadol, Datril, Anacin 3, Tempra, and Liquiprin. Acetaminophen can be repeated every four hours. The following are maximum recommended dosages: WEIGHT Dose Drops Elixir Chewable(80mg) (LBS.) drprs=droppers tsp=teaspoon 6 40 mg .4 ml (1/2) 6-11 80 mg .8 ml (full) 1/2 tsp 1 tab 12-16 120 mg 1 1/2 drprs 3/4 tsp 1 1/2 tabs 17-23 160 mg 2 drprs 1 tsp 2 tabs 24-30 240 mg 3 drprs 1 1/2 tsp 3 tabs 30-35 320 mg 2 tsp 4 tabs 36-41 360 mg 2 1/4 tsp 4 1/2 tabs 42-47 400 mg 2 1/2 tsp 5 tabs 48-53 480 mg 3 tsp 6 tabs 54-59 520 mg 3 1/4 tsp 6 1/2 tabs 60-64 560 mg 3 1/2 tsp 7 tabs 65-70 600 mg 3 3/4 tsp 7 1/2 tabs 71-76 640 mg 4 tsp 8 tabs 77-82 720 mg 4 1/2 tsp 9 tabs 83-88 800 mg 5 tsp 10 tabs >89 pounds or adults 650 mg to 900 mg Acetaminophen can be repeated every four hours. Maximum daily dose not to exceed 4000 mg. These maximum recommended dosages are slightly higher than the dosages written on the product container, but these dosages are very safe and well below the toxic dosage for acetaminophen. Ibuprofen Ibuprofen is an excellent, safe drug for pain control. In addition, it has potent antiinflammatory effects which are beneficial, especially in the treatment of injuries, arthritis, or tendonitis. It's best to take ibuprofen with food. Persons with ulcer disease or allergy to aspirin should notify their physician of this before taking ibuprofen. Take the medication exactly as prescribed. Don't take additional doses unless instructed to do so by your doctor. If you develop wheezing, shortness of breath, hives, faintness, stomach pain, vomiting, or dark black stools, return for re-evaluation at once. Ice & Elevation Apply ice packs frequently against the painful area. Many different schedules are recommended, such as "20 minutes on, 20 minutes off" or "one hour ice, two hours rest." If you need to work, you may need to go longer between ice treatments. You should plan to have the area ice packed AT LEAST one-fourth of the time. The ice should be applied over the wrap, tape, or splint, or over a layer of cloth -- not directly against the skin. Some ice bags have a built-in cloth and can be put directly on the skin. Your injured part should be elevated as much as possible over the next 48 hours. Try to keep the injury above the level of the heart. Avoid use of the injured area. Elevation and rest will decrease the swelling. FOLLOW-UP CARE: If you have been referred to a physician for follow-up care, call the physicians office for an appointment as you were instructed or within the next two days. If you experience worsening or a significant change in your symptoms, notify the physician immediately or return to the Emergency Department at any time for re-evaluation. Prescriptions: Cephalexin Monohydrate [Keflex 500 mg Capsule] 500 mg PO Q6H 5 Days capsule Forms: Return to Work
[2019-01-27] MEDS: CEPHALEXIN 500 MG CAPSULE PO ONE (19:22)
[2019-01-27 19:30] VITALS: BP 103/60
== END 2019-01-27 19:32 | disposition home or self-care (01) ==
LOC: ER 17:28
PROC: 0HQGXZZ Repair Left Hand Skin, External Approach (ICD-10-PCS; principal; 2019-01-27)
DX: S61.412A Laceration without foreign body of left hand, initial encounter (principal); W26.0XXA Contact with knife, initial encounter
CPT/HCPCS: 99282

== ENCOUNTER 2019-02-20 09:47 | Emergency (ER) | payer SELFPAY ==
[2019-02-20] MEDS ORDERED: ASPIRIN 81 MG TABLET, CHEWABLE PO ONE (10:32)
--- NOTE | 2019-02-20 10:35 | ER Document Report ---
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 Patient states at times the chest pain increases with movement but she is denying any cough or congestion. States that time the chest pain just stays constant. Patient is also planing of some generalized suprapubic abdominal pain a "squeezing" feeling. States she did vomit yesterday but has had no vomiting today. Patient's denying any diarrhea or fevers. GENERAL: Alert, interacts well. No acute distress. LUNGS: Clear to auscultation bilaterally, no wheezes, rales, or rhonchi. No respiratory distress. ABDOMEN: Soft, suprapubic tenderness noted, non-distended. Bowel sounds present in all 4 quadrants. No McBurney's point tenderness, no Guido sign noted. EXTREMITIES: Moves all 4 extremities spontaneously. No edema, normal radial and dorsalis pedis pulses bilaterally. No cyanosis. I have greeted and performed a rapid initial assessment of this patient. A comprehensive ED assessment and evaluation of the patient, analysis of test results and completion of the medical decision making process will be conducted by additional ED providers. TRAVEL OUTSIDE OF THE [place] IN LAST 30 DAYS: No - Related Data Allergies/Adverse Reactions: No Known Allergies Allergy (Verified 02/20/19 10:22) Past Medical History - Social History Family history: None Neurological Medical History: Reports: Hx Migraine Renal/ Medical History: Denies: Hx Peritoneal Dialysis Musculoskeltal Medical History: Reports Hx Musculoskeletal Deformity Past Surgical History: Reports: Hx Abdominal Surgery - hernia repair, Hx Cardiac Catheterization, Hx Cardiac Surgery, Hx Open Heart Surgery - valve repair, Hx Oral Surgery - cleft palate and lip repair, Hx Orthopedic Surgery - hip surgery x 2 - Immunizations Immunizations up to date: Yes Hx Diphtheria, Pertussis, Tetanus Vaccination: Yes Physical Exam - Vital signs Vitals: Temp Pulse Resp BP Pulse Ox 97.3 F 68 18 112/61 97 02/20/19 09:55 02/20/19 09:55 02/20/19 09:55 02/20/19 09:55 02/20/19 09:55 Course - Vital Signs Vital signs: Temp Pulse Resp BP Pulse Ox 97.3 F 68 18 112/61 97 02/20/19 09:55 02/20/19 09:55 02/20/19 09:55 02/20/19 09:55 02/20/19 09:55
[2019-02-20 11:17] LABS: ABSOLUTE EOSINOPHILS # (AUTO) 0.1 10^3/uL (0.0-0.6); ABSOLUTE LYMPHOCYTES (AUTO) 1.1 10^3/uL (0.5-4.7); ABSOLUTE MONOCYTES (AUTO) 0.6 10^3/uL (0.1-1.4); ABSOLUTE NEUT (AUTO) 6.9 10^3/uL (1.7-8.2); BASOPHILS % (AUTO) 0.5 % (0-2); EOSINOPHILS % (AUTO) 0.9 % (0-6); HEMOGLOBIN 14.9 g/dL (12.0-15.5); LYMPHOCYTES % (AUTO) 12.8 % (13-45); MEAN CORPUSCULAR HEMOGLOBIN 30.9 pg (27.0-33.4); MEAN CORPUSCULAR HGB CONC 33.9 g/dL (32.0-36.0); MEAN CORPUSCULAR VOLUME 91 fl (80-97); MONOCYTES % (AUTO) 7.3 % (3-13); PLATELET COUNT 220 10^3/uL (150-450); RED BLOOD COUNT 4.83 10^6/uL (3.72-5.28); RED CELL DISTRIBUTION WIDTH 12.8 % (11.5-14.0); SEGMENTED NEUTROPHILS % (AUTO) 78.5 % (42-78); TOTAL CELLS COUNTED % (AUTO) 100 %; WHITE BLOOD COUNT 8.8 10^3/uL (4.0-10.5)
--- NOTE | 2019-02-20 11:18 | RADIOLOGY REPORT (SQ) ---
EXAM DESCRIPTION: CHEST SINGLE VIEW COMPLETED DATE/TIME: 02/20/2019 11:10 am REASON FOR STUDY: cp COMPARISON: 02/23/2017. EXAM PARAMETERS: NUMBER OF VIEWS: One view. TECHNIQUE: Single frontal radiographic view of the chest acquired. RADIATION DOSE: NA LIMITATIONS: None. FINDINGS: LUNGS AND PLEURA: No opacities, masses or pneumothorax. No pleural effusion. MEDIASTINUM AND HILAR STRUCTURES: No masses. Contour normal. HEART AND VASCULAR STRUCTURES: Heart normal in size. Normal vasculature. BONES: No acute findings. HARDWARE: Sternotomy wires. OTHER: No other significant finding. IMPRESSION: NO ACUTE RADIOGRAPHIC FINDING IN THE CHEST. TECHNICAL DOCUMENTATION: JOB ID: [id number] [employer]- All Rights Reserved Reading location - IP/workstation name: [email or web address]
[2019-02-20 11:24] LABS: APPEARANCE,URINE CLEAR; BILIRUBIN,URINE NEGATIVE (NEGATIVE); COLOR,URINE YELLOW; GLUCOSE, URINE NEGATIVE (NEGATIVE); KETONES,URINE NEGATIVE (NEGATIVE); LEUKOCYTE ESTERASE,URINE NEGATIVE (NEGATIVE); NITRITE,URINE NEGATIVE (NEGATIVE); PROTEIN,URINE NEGATIVE (NEGATIVE); URINE SPECIFIC GRAVITY 1.013; UROBILINOGEN,URINE NEGATIVE mg/dL (<2.0)
[2019-02-20 11:41] LABS: ALANINE AMINOTRANSFERASE 21 U/L (9-52); ALBUMIN 4.7 g/dL (3.5-5.0); ALKALINE PHOSPHATASE 65 U/L (38-126); ANION GAP 11 (5-19); ASPARTATE AMINO TRANSFERASE 28 U/L (14-36); BILIRUBIN,DIRECT 0.3 mg/dL (0.0-0.4); BILIRUBIN,TOTAL 2.4 mg/dL (0.2-1.3); BLOOD UREA NITROGEN 13 mg/dL (7-20); CARBON DIOXIDE 24 mmol/L (22-30); CHLORIDE 105 mmol/L (98-107); CREATINE KINASE 95 U/L (30-135); LIPASE 143.7 U/L (23-300); POTASSIUM 4.4 mmol/L (3.6-5.0); SODIUM 139.9 mmol/L (137-145); TOTAL PROTEIN 7.5 g/dL (6.3-8.2)
[2019-02-20 11:45] LABS: GLUCOSE 65 mg/dL (75-110)
[2019-02-20 11:52] LABS: CREATINE KINASE MB 0.89 ng/mL (<4.55)
[2019-02-20 11:56] LABS: TROPONIN I < 0.012 ng/mL
--- NOTE | 2019-02-20 12:35 | EKG REPORT ---
SEVERITY:- ABNORMAL ECG - SINUS RHYTHM PROBABLE LEFT ATRIAL ABNORMALITY IVCD, CONSIDER ATYPICAL RBBB : Confirmed by: Josh Hernandez MD 20-Feb-2019 12:34:37
--- NOTE | 2019-02-20 13:35 | ER Document Report ---
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 Patient states at times the chest pain increases with movement but she is denying any cough or congestion. States that time the chest pain just stays constant. Patient is also planing of some generalized suprapubic abdominal pain a "squeezing" feeling. States she did vomit yesterday but has had no vomiting today. Patient's denying any fever or chills, headache or blurred vision, lightheadedness or dizziness, shortness of breath, states she is chest pain-free while still at rest, denies nausea or vomiting, denies diarrhea or constipation, denies urinary symptoms, denies vaginal discharge. TRAVEL OUTSIDE OF THE [place] IN LAST 30 DAYS: No - Related Data Allergies/Adverse Reactions: No Known Allergies Allergy (Verified 02/20/19 10:22) Past Medical History - Social History Smoking Status: Current Every Day Smoker Chew tobacco use (# tins/day): No Frequency of alcohol use: None Drug Abuse: None Family History: Reviewed & Not Pertinent, Arthritis, CAD, COPD, CVA, DM, Hyperlipidemia, Hypertension Patient has suicidal ideation: No Patient has homicidal ideation: No Neurological Medical History: Reports: Hx Migraine Renal/ Medical History: Denies: Hx Peritoneal Dialysis Musculoskeletal Medical History: Reports Hx Musculoskeletal Deformity Past Surgical History: Reports: Hx Abdominal Surgery - hernia repair, Hx Cardiac Catheterization, Hx Cardiac Surgery, Hx Open Heart Surgery - valve repair, Hx Oral Surgery - cleft palate and lip repair, Hx Orthopedic Surgery - hip surgery x 2 - Immunizations Immunizations up to date: Yes Hx Diphtheria, Pertussis, Tetanus Vaccination: Yes Review of Systems - Review of Systems Constitutional: See HPI EENT: No symptoms reported Cardiovascular: See HPI Respiratory: See HPI Gastrointestinal: See HPI Genitourinary: See HPI Female Genitourinary: See HPI Musculoskeletal: No symptoms reported Skin: No symptoms reported Hematologic/Lymphatic: No symptoms reported Neurological/Psychological: No symptoms reported Physical Exam - Vital signs Vitals: Temp Pulse Resp BP Pulse Ox 97.3 F 68 18 112/61 97 02/20/19 09:55 02/20/19 09:55 02/20/19 09:55 02/20/19 09:55 02/20/19 09:55 - Notes Notes: PHYSICAL EXAMINATION: Reviewed vital signs and charting by RN GENERAL: Alert, interacts well. No acute distress. HEAD: Normocephalic, atraumatic. EYES: Pupils equal and round. Extraocular movements intact. ENT: Oral mucosa moist, tongue midline. NECK: Full range of motion. Supple. Trachea midline. LUNGS: Clear to auscultation bilaterally, no wheezes, rales, or rhonchi. No respiratory distress. HEART: Regular rate and rhythm. No murmur ABDOMEN: soft, left upper quadrant and suprapubic tenderness. Non-distended. Bowel sounds present. no McBurney's point tenderness, no Guido sign. EXTREMITIES: Moves all 4 extremities spontaneously. No edema, No cyanosis. Normal distal neurovascular exam BACK: No CVAT NEUROLOGIC: Oriented and appropriate. Normal speech. PSYCH: Normal affect, normal mood. SKIN: Warm, dry, normal turgor. No rashes or lesions noted. Course - Re-evaluation Re-evalutation: 02/20/19 13:33 Overall well-appearing. Initial troponin negative. 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 negative. No UTI. Will discuss with attending. 02/20/19 15:36 A second troponin was obtained and is negative. 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 At rest she has no chest pain. And she does state that it is reproducible with movement. She states her primary complaint now is abdominal pain. At this time I have very low suspicion for cardiac etiology due to 2- troponins and a normal chest x-ray. Of note, patient had a complaint of an infected earring in the cartilage of her ear. On inspection it is red and irritated consistent with perichondritis. I will treat her with Keflex for that. Patient agrees with plan and is satisfied. 02/20/19 15:37 - Vital Signs Vital signs: Temp Pulse Resp BP Pulse Ox 98.0 F 68 15 108/64 98 02/20/19 12:58 02/20/19 09:55 02/20/19 12:01 02/20/19 12:00 02/20/19 12:01 - Laboratory Result Diagrams: 02/20/19 10:40 02/20/19 10:40 Laboratory results interpreted by me: 02/20/19 02/20/19 10:40 10:40 Seg Neutrophils % 78.5 H Lymphocytes % 12.8 L Glucose 65 L Total Bilirubin 2.4 H Discharge - Discharge Clinical Impression: Perichondritis Chest pain Qualifiers: Chest pain type: unspecified Qualified Code(s): R07.9 - Chest pain, unspecified Abdominal pain Qualifiers: Abdominal location: unspecified location Qualified Code(s): R10.9 - Unspecified abdominal pain Condition: Good Disposition: HOME, SELF-CARE Instructions: Abdominal Pain ([facility]) Additional Instructions: You have been seen in the Emergency Department (ED) for abdominal pain. Your evaluation did not identify a clear cause of your symptoms but was generally reassuring. Please follow up with your doctor as soon as possible regarding today's emergent visit and the symptoms that are bothering you. Return to the ED if your abdominal pain worsens or fails to improve, you develop bloody vomiting, bloody diarrhea, you are unable to tolerate fluids due to vomiting, fever greater than 101, or other symptoms that concern you. You were also seen today for chest pain. The exact cause of your pain is unclear. However, based on your cardiac enzyme testing, chest x-ray, and EKG it does not appear that it is from an immediately life-threatening cause at this time. Although your testing here is normal is critical that you follow-up with your primary care physician for continued evaluation of this chest pain and possible stress testing. I recommended you see your physician within the next 24-48 hours to be evaluated for consideration of a stress test. Please return to emergency department immediately if you have worsening of your chest pain, shortness of breath, vomiting, become unable to exert yourself due to pain or difficulty breathing, you pass out, or have any pain that radiates into your arms, jaw, or back. Please also return if you have any additional symptoms that are concerning to you. Also, you were seen for a condition called perichondritis of your left ear that is where the cartilage gets inflamed I am starting you on an antibiotic called Keflex which you should take 4 times per day for 7 days. Please take it until it is complete. It would be prudent to remove the earring at this time. If it starts to get worsening redness or swelling, purulent discharge come from it while being on antibiotics please follow-up as you will probably need a different antibiotic.
[2019-02-20] MEDS ORDERED: CEPHALEXIN 500 MG CAPSULE PO ONE (15:41)
[2019-02-20 15:54] VITALS: BP 126/60
== END 2019-02-20 15:54 | disposition home or self-care (01) ==
LOC: ER 09:47
DX: R07.9 Chest pain, unspecified (principal); H61.002 Unspecified perichondritis of left external ear; R10.30 Lower abdominal pain, unspecified; F17.200 Nicotine dependence, unspecified, uncomplicated
CPT/HCPCS: 36415; 71045; 80053; 81001; 81025; 82550; 82553; 83690; 84484; 85025; 93005; 93010; 99284

== ENCOUNTER 2019-03-15 12:19 | Emergency (ER) | payer SELFPAY ==
[2019-03-15 12:27] VITALS: BP 123/70
[2019-03-15] MEDS ORDERED: CETIRIZINE 10 MG TABLET PO ONE (12:49)
--- NOTE | 2019-03-15 12:51 | ER Document Report ---
HPI - HPI Patient complains to provider of: itching, rash Time Seen by Provider: 03/15/19 12:43 Onset: Just prior to arrival Onset/Duration: Sudden Quality of pain: No pain Pain Level: 0 Context: Patient presents emergency department with complaints that she has a rash and she is itching. 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 She denies trouble breathing. Denies allergies. Patient looks nontoxic patient is itching her arms no rash noted, speaking in a clear voice no difficulty breathing Associated Symptoms: None Exacerbated by: Denies Relieved by: Denies Similar symptoms previously: No Recently seen / treated by doctor: No - REPRODUCTIVE Reproductive: DENIES: : Past Medical History - General Information source: Patient - Social History Smoking Status: Current Every Day Smoker Cigarette use (# per day): Yes Frequency of alcohol use: None Drug Abuse: None Family History: Reviewed & Not Pertinent, Arthritis, CAD, COPD, CVA, DM, Hyperlipidemia, Hypertension Neurological Medical History: Reports: Hx Migraine Renal/ Medical History: Denies: Hx Peritoneal Dialysis Musculoskeletal Medical History: Reports Hx Musculoskeletal Deformity Past Surgical History: Reports: Hx Abdominal Surgery - hernia repair, Hx Cardiac Catheterization, Hx Cardiac Surgery, Hx Open Heart Surgery - valve repair, Hx Oral Surgery - cleft palate and lip repair, Hx Orthopedic Surgery - hip surgery x 2 - Immunizations Immunizations up to date: Yes Hx Diphtheria, Pertussis, Tetanus Vaccination: Yes Vertical Provider Document - CONSTITUTIONAL Agree With Documented VS: Yes Exam Limitations: No Limitations General Appearance: WD/WN, No Apparent Distress - INFECTION CONTROL TRAVEL OUTSIDE OF THE [place] IN LAST 30 DAYS: No - HEENT HEENT: Atraumatic, Normocephalic - NECK Neck: Supple - RESPIRATORY Respiratory: No Respiratory Distress - MUSCULOSKELETAL/EXTREMETIES Musculoskeletal/Extremeties: LENCHO TAFOYA - NEURO Level of Consciousness: Awake, Alert, Appropriate - DERM Integumentary: Warm, Dry, No Rash - Patient is itching her arms reports she itches all over. No rash noted no open sores no vesicles. Course - Re-evaluation Re-evalutation: 03/15/19 12:54 No rash noted patient talking in clear voice no difficulty breathing respiratory rate even unlabored. Patient was instructed on antihistamine. Patient was also instructed to go home take a shower and see if that helps her. She was instructed to return for the emergency department if she has trouble breathing concerns. She verbalized understanding Dictation of this chart was performed using voice recognition software; therefore, there may be some unintended grammatical errors. - Vital Signs Vital signs: Temp Pulse Resp BP Pulse Ox 97.6 F 59 L 16 123/70 97 03/15/19 12:25 03/15/19 12:25 03/15/19 12:25 03/15/19 12:25 03/15/19 12:25 Discharge - Discharge Clinical Impression: pruitis Condition: Stable Disposition: HOME, SELF-CARE Instructions: Antihistamines ([facility]) Additional Instructions: *You have been treated for itching *Take an antihistamine as indicated *Take a shower, wash the clothes you are currently wearing * Follow up with a primary care provider for recheck and possible allergy testing within one week *Return to ED for difficulty breathing, worsening condition,changes, needs
== END 2019-03-15 13:04 | disposition home or self-care (01) ==
LOC: ER 12:19
DX: L29.9 Pruritus, unspecified (principal); F17.210 Nicotine dependence, cigarettes, uncomplicated
CPT/HCPCS: 99282

== ENCOUNTER 2019-03-17 15:12 | Emergency (ER) | payer SELFPAY | END 2019-03-17 16:35 | disposition left against medical advice (07) | LOC: ER 15:12 | DX: Z53.21 Procedure and treatment not carried out due to patient leaving prior to being seen by health care provider (principal) ==

== ENCOUNTER 2019-03-29 10:44 | Emergency (ER) | payer SELFPAY ==
[2019-03-29 10:54] VITALS: BP 119/73
[2019-03-29] MEDS ORDERED: LIDOCAINE 5% (700 MG) TRANSDERMAL ADH..PATCH TP ONE (11:17)
[2019-03-29] MEDS ORDERED: ACETAMINOPHEN 325 MG TABLET PO ONE (11:17)
[2019-03-29] MEDS ORDERED: KETOROLAC TROMETHAMINE 60 MG/2 ML SDV IM ONE (11:17)
--- NOTE | 2019-03-29 11:23 | ER Document Report ---
HPI - HPI Patient complains to provider of: LBP Time Seen by Provider: 03/29/19 11:06 Pain Level: 5 Context: 23 female presents to the emergency department with acute low back pain x1 week. She states she was holding her dog when he jumped over a fence and the leash jerked her and twisted her and she felt acute pain about an hour after that. She says the pain is not gotten any better and she is favoring it and leaning over to the left. She states that it is in her lower back and she gets shooting pain down her left gluteus into her anterior thigh. She denies any fevers, IV drug use, urinary retention or bowel incontinence, saddle paresthesia. She states that she has taken Motrin for but has not tried anything else. She denies any other trauma or history of lower back pain. - CONSTITUTIONAL Constitutional: DENIES: Fever, Chills - REPRODUCTIVE Reproductive: DENIES: : Past Medical History - Social History Smoking Status: Unknown if Ever Smoked Family History: Reviewed & Not Pertinent, Arthritis, CAD, COPD, CVA, DM, Hyperlipidemia, Hypertension Patient has suicidal ideation: No Patient has homicidal ideation: No Neurological Medical History: Reports: Hx Migraine Renal/ Medical History: Denies: Hx Peritoneal Dialysis Musculoskeletal Medical History: Reports Hx Musculoskeletal Deformity Past Surgical History: Reports: Hx Abdominal Surgery - hernia repair, Hx Cardiac Catheterization, Hx Cardiac Surgery, Hx Open Heart Surgery - valve repair, Hx Oral Surgery - cleft palate and lip repair, Hx Orthopedic Surgery - hip surgery x 2 - Immunizations Immunizations up to date: Yes Hx Diphtheria, Pertussis, Tetanus Vaccination: Yes Vertical Provider Document - CONSTITUTIONAL Notes: PHYSICAL EXAMINATION: Reviewed vital signs and charting by RN GENERAL: Alert, interacts well. No acute distress. HEAD: Normocephalic, atraumatic. EYES: Pupils equal, round, and reactive to light. Extraocular movements intact. ABDOMEN: soft, non-tender. No distention. Bowel sounds present BACK: Patient favoring her left side and leaning in a position of comfort, acute tenderness to palpation along the left paraspinal muscles that induces radiculopathy, positive left straight leg raise test. EXTREMITIES: Moves all 4 extremities spontaneously. No edema, No cyanosis. PSYCH: Normal affect, normal mood. SKIN: Warm, dry, normal turgor. No rashes or lesions noted. - INFECTION CONTROL TRAVEL OUTSIDE OF THE [place] IN LAST 30 DAYS: No Course - Re-evaluation Re-evalutation: 03/29/19 11:23 Presentation of a well appearing patient complaining of acute back pain. No rapid progression of symptoms, systemic symptoms including fevers, chills, weight loss, history of recent bacterial infection, bilateral symptoms, numbness, weakness, difficulty walking, urinary retention or bowel incontinence, personal history of cancer, immunosuppression, diabetes, known AAA, or history of IV drug use. Exam is without point tenderness over vertebral bodies, pulsatile abdominal mass, and patient has symmetric and intact lower extremity strength, sensation, and reflexes without clonus. 2+ symmetric medial malleolar and dorsalis pedis pulses Based on history and physical, I have a very low suspicion of a concerning etiology of pain including epidural compression syndrome, spinal infection, transverse myelitis, malignancy, abdominal aortic aneurysm, renal colic, acute lower extremity claudication, neurogenic claudication, ankylosing spondylitis, or other intra-abdominal process. Due to absence of concerning risk factors in history and physical as well as absence of rapidly progressive, severe, or bilateral symptoms, will defer imaging at this point. - Vital Signs Vital signs: Temp Pulse Resp BP Pulse Ox 98.1 F 73 16 119/73 99 03/29/19 10:50 03/29/19 10:50 03/29/19 10:50 03/29/19 10:50 03/29/19 10:50 Discharge - Discharge Clinical Impression: Lower back pain Qualifiers: Chronicity: acute Back pain laterality: left Sciatica presence: with sciatica Sciatica laterality: sciatica of left side Qualified Code(s): M54.42 - Lumbago with sciatica, left side Condition: Stable Disposition: HOME, SELF-CARE Instructions: Low Back Pain ([facility]), Warm Packs ([facility]) Additional Instructions: You have been seen in the Emergency Department (ED) today for back pain. Your workup and exam have not shown any acute abnormalities and you are likely suffering from muscle strain or possible problems with your discs, but there is no treatment that will fix your symptoms at this time. Please take ibuprofen 600 mg every 6 hours with food or milk [id number] for the next week. You should also purchase a local lidocaine cream such as "aspercreme with lidocaine" and use per bottle instructions to the affected area. Apply heat to the area as often as you are able. Continue to keep active and avoid prolonged periods of bed rest. Return to the ED for worsening back pain, fever, weakness or numbness of either leg, or if you develop either (1) an inability to urinate or have bowel movements, or (2) loss of your ability to control your bathroom functions (if you start having "accidents"), or if you develop other new symptoms that concern you.concern you. Forms: Return to Work
== END 2019-03-29 11:43 | disposition home or self-care (01) ==
LOC: ER 10:44
DX: M54.42 Lumbago with sciatica, left side (principal); X50.0XXA Overexertion from strenuous movement or load, initial encounter
CPT/HCPCS: 99283; 96372; J1885

== ENCOUNTER 2019-05-30 12:52 | Emergency (ER) | payer SELFPAY ==
--- NOTE | 2019-05-30 13:19 | ER Document Report ---
HPI - HPI Time Seen by Provider: 05/30/19 13:13 Pain Level: 3 Notes: Patient is a 23-year-old female with h/o ongoing back pain who presents to the ED complaining of Lt lower back pain x2wks. Patient states that bending twisting of the trunk make his pain worse. Pain will occ radiate to the left leg across the L4 dermatome, approx. She is eating and drinking without any difficulties. She is urinating normally and having normal bowel movements. She has not had any injections or procedures to her lower back. Denies any IV drug abuse. No other concerns or complaints. Toradol did not help the last time she was here but she has not had any worsening symptoms. She has not been seen by a PCM or specialist. Pt requesting work note. Denies any headache, fever, neck pain, URI, sore throat, chest pain, palpitations, syncope, cough, shortness of breath, wheeze, dyspnea, abdominal pain, nausea/vomiting/diarrhea, urinary retention, dysuria, hematuria, loss of control of bowel or bladder, saddle anesthesia, muscle paralysis/weakness, or rash. - ROS Systems Reviewed and Negative: Yes All other systems reviewed and negative - REPRODUCTIVE Reproductive: DENIES: : Past Medical History - Social History Smoking Status: Current Some Day Smoker Family History: Reviewed & Not Pertinent, Arthritis, CAD, COPD, CVA, DM, Hyperlipidemia, Hypertension Neurological Medical History: Reports: Hx Migraine Renal/ Medical History: Denies: Hx Peritoneal Dialysis Musculoskeletal Medical History: Reports Hx Musculoskeletal Deformity Past Surgical History: Reports: Hx Abdominal Surgery - hernia repair, Hx Cardiac Catheterization, Hx Cardiac Surgery, Hx Open Heart Surgery - valve repair, Hx Oral Surgery - cleft palate and lip repair, Hx Orthopedic Surgery - hip surgery x 2 - Immunizations Immunizations up to date: Yes Hx Diphtheria, Pertussis, Tetanus Vaccination: Yes Vertical Provider Document - CONSTITUTIONAL Agree With Documented VS: Yes Notes: PHYSICAL EXAMINATION: GENERAL: Well-appearing, well-nourished and in no acute distress. LUNGS: Breath sounds clear to auscultation bilaterally and equal. No wheezes rales or rhonchi. HEART: Regular rate and rhythm without murmurs, rubs, gallops. ABDOMEN: Soft, nontender, nondistended abdomen. No guarding, no rebound. Normal bowel sounds present. No CVA tenderness bilaterally. No pulsatile mass Musculoskeletal: LE's b/l: FROM to passive/active. Strength 5+/5. No deficits noted. No bony tenderness of extremities. Back: FROM to passive/active. Strength 5+/5. No vertebral point tenderness, stepoffs, or deformities. No other bony tenderness, erythema, swelling, or ecchymosis. SLR negative b/l. + mild tenderness to the L-paraspinal mm Left. Mild spasming. + mild left SI jt tenderness. No foot drop Extremities: No cyanosis, clubbing, or edema b/l. Peripheral pulses 2+. Capillary refill less than 2 seconds. NEUROLOGICAL: Normal speech, normal gait. Normal sensory, motor exams. Reflexes 2+ b/l. PSYCH: Normal mood, normal affect. SKIN: Warm, Dry, normal turgor, no rashes or lesions noted. - INFECTION CONTROL TRAVEL OUTSIDE OF THE [place] IN LAST 30 DAYS: No Course - Re-evaluation Re-evalutation: 05/30/19 13:23 Patient is an afebrile, well-hydrated, 23-year-old female who presents to the ED with acute on chronic low back pain. Vitals are acceptable. PE is otherwise unremarkable for any focal neurological deficits. Patient declined toradol, lidoderm, and muscle relaxers as well as NSAIDs for home. She has no significant tachycardia, tachypnea, or hypoxia. She is nontoxic-appearing and is tolerating p.o. without difficulties. There are no signs of infection. No other red flag symptoms noted. No other labs or imaging warranted at this time based on H&P. Low suspicion for any meningitis, fracture, expanding/ruptured AAA, cauda equina syndrome, epidural mass lesion/abscess, herniated disc causing severe spinal stenosis, or other systemic infection at this time. Patient is aware that this condition can change from initial presentation and that she needs monitor symptoms closely for any acute changes. Conservative measures otherwise for symptoms. Recheck with your PCM in 3-5 days. Consider consult with orthopedic/physical therapy. Return to the ED with any worsening/concerning symptoms otherwise as reviewed discharge. Patient is in agreement. Discharge - Discharge Clinical Impression: Acute exacerbation of chronic low back pain Condition: Stable Disposition: HOME, SELF-CARE Instructions: Low Back Pain ([facility]), Stretching Exercises for the Back ([facility]) Additional Instructions: Rest, Ice Tylenol/ibuprofen as needed Light stretches daily Strength exercises as able Moist heat and massage may help F/u with your PCP in 3-5 days for a recheck Consider consult(s) with Orthopedics/physical therapy for ongoing/worsening symptoms Return to the ED with any worsening symptoms and/or development of fever, headache, chest pain, palpitations, syncope, shortness of breath, trouble breathing, abdominal pain, n/v/d, blood in stool/urine, loss of control of bowel/bladder, urinary retention, muscle weakness/paralysis, saddle anesthesia, numbness/tingling, or other worsening symptoms that are concerning to you. Forms: Smoking Cessation Education, Return to Work Referrals: [facility] ([facility] [Provider Group] - Follow up as needed ZACK LAU MD [ACTIVE PROVISIONAL STAFF] - Follow up as needed
[2019-05-30 13:24] VITALS: BP 119/57
== END 2019-05-30 13:26 | disposition home or self-care (01) ==
LOC: ER 12:52
DX: M54.5 Low back pain (principal); G89.29 Other chronic pain; X50.1XXA Overexertion from prolonged static or awkward postures, initial encounter; M79.605 Pain in left leg; Z79.899 Other long term (current) drug therapy; F17.200 Nicotine dependence, unspecified, uncomplicated
CPT/HCPCS: 99283

== ENCOUNTER 2019-06-27 12:51 | Emergency (ER) | payer SELFPAY ==
[2019-06-27] MEDS ORDERED: PROCHLORPERAZINE EDISYLATE INJ 10 MG/2 ML VIAL IV ONE (14:25)
[2019-06-27] MEDS ORDERED: DIPHENHYDRAMINE HCL 50 MG/ML VIAL IV ONE (14:25)
--- NOTE | 2019-06-27 14:27 | ER Document Report ---
ED Medical Screen (RME) - General Chief Complaint: Headache Stated Complaint: HEADPAIN Time Seen by Provider: 06/27/19 14:23 Mode of Arrival: Ambulatory Information source: Patient Notes: Patient is a 23-year-old female presenting to the emergency department chief complaint of headache. Patient reports headache is been intermittent over the last week with worsening over the last 3 days. She reports pain is located on the right side of her head and has associated light sensitivity. She denies any nausea or vomiting. She does state that this does feel different than any other headache she has had in the past. Exam: Patient alert, oriented, answering all questions appropriately with no acute distress noted. No focal neurological deficits noted. I have greeted and performed a rapid initial assessment of this patient. A comprehensive ED assessment and evaluation of the patient, analysis of test results and completion of the medical decision making process will be conducted by additional ED providers. I have specifically instructed the patient or family members with the patient to immediately return to any nursing staff should anything change in the patient's condition or with their chief complaint. This medical record was dictated with voice recognizing software. There may be grammatical, syntax errors that are unintended. TRAVEL OUTSIDE OF THE [place] IN LAST 30 DAYS: No - Related Data Allergies/Adverse Reactions: No Known Allergies Allergy (Verified 05/30/19 12:53) Past Medical History - Social History Family history: None Neurological Medical History: Reports: Hx Migraine Renal/ Medical History: Denies: Hx Peritoneal Dialysis Musculoskeltal Medical History: Reports Hx Musculoskeletal Deformity Past Surgical History: Reports: Hx Abdominal Surgery - hernia repair, Hx Cardiac Catheterization, Hx Cardiac Surgery, Hx Open Heart Surgery - valve repair, Hx Oral Surgery - cleft palate and lip repair, Hx Orthopedic Surgery - hip surgery x 2 - Immunizations Immunizations up to date: Yes Hx Diphtheria, Pertussis, Tetanus Vaccination: Yes Physical Exam - Vital signs Vitals: Temp Pulse Resp BP Pulse Ox 98.1 F 69 18 119/69 97 06/27/19 13:36 06/27/19 13:36 06/27/19 13:36 06/27/19 13:36 06/27/19 13:36 Course - Vital Signs Vital signs: Temp Pulse Resp BP Pulse Ox 98.1 F 69 18 119/69 97 06/27/19 13:36 06/27/19 13:36 06/27/19 13:36 06/27/19 13:36 06/27/19 13:36
--- NOTE | 2019-06-27 15:49 | ER Document Report ---
HPI - HPI Time Seen by Provider: 06/27/19 14:23 Pain Level: 4 Notes: Patient is a 23-year-old female with a history of headaches who presents complaining of right-sided temporal headache that is been present for about a week. Patient states that the discomfort would wax and wane, but was usually a dull ache. Patient reports having headaches like this historically. She did not take any medicines for her symptoms. No recent illness. Denies drug allergies. No injury. Denies any fever, head injury, neck pain, red eye, changes in vision/speech/mentation/hearing, URI, sore throat, chest pain, palpitations, syncope, cough, shortness of breath, wheeze, dyspnea, abdominal pain, nausea/vomiting/diarrhea, urinary retention, dysuria, hematuria, loss of control of bowel or bladder, numbness/tingling, saddle anesthesia, muscle paralysis/weakness, or rash. - ROS Systems Reviewed and Negative: Yes All other systems reviewed and negative - REPRODUCTIVE Reproductive: DENIES: : Past Medical History - General Information source: Patient - Social History Smoking Status: Current Every Day Smoker Family History: Reviewed & Not Pertinent, Arthritis, CAD, COPD, CVA, DM, Hyperlipidemia, Hypertension Patient has suicidal ideation: No Patient has homicidal ideation: No Neurological Medical History: Reports: Hx Migraine Renal/ Medical History: Denies: Hx Peritoneal Dialysis Musculoskeletal Medical History: Reports Hx Musculoskeletal Deformity Past Surgical History: Reports: Hx Abdominal Surgery - hernia repair, Hx Cardiac Catheterization, Hx Cardiac Surgery, Hx Open Heart Surgery - valve repair, Hx Oral Surgery - cleft palate and lip repair, Hx Orthopedic Surgery - hip surgery x 2 - Immunizations Immunizations up to date: Yes Hx Diphtheria, Pertussis, Tetanus Vaccination: Yes Vertical Provider Document - CONSTITUTIONAL Agree With Documented VS: Yes Notes: PHYSICAL EXAMINATION: GENERAL: Well-appearing, well-nourished and in no acute distress. A&Ox4. Answers questions appropriately. HEAD: Atraumatic, normocephalic. Non-tender. EYES: Pupils equal round and reactive to light, extraocular movements intact, sclera anicteric, conjunctiva are normal. No nystagmus. ENT: Nares patent and without discharge. oropharynx clear without exudates. No tonsilar hypertrophy or erythema. Moist mucous membranes. No sinus tenderness. NECK: Normal range of motion, supple without lymphadenopathy. No rigidity/meningismus. No midline tenderness. LUNGS: Breath sounds clear to auscultation bilaterally and equal. No wheezes ra les or rhonchi. HEART: Regular rate and rhythm without murmurs, rubs, gallops. ABDOMEN: Soft, nontender, nondistended abdomen. No guarding, no rebound. Normal bowel sounds present. No CVA tenderness bilaterally. Musculoskeletal: Ext b/l: FROM to passive/active. Strength 5+/5. No deficits noted. No bony tenderness of extremities. Extremities: No cyanosis, clubbing, or edema b/l. Peripheral pulses 2+. Capillary refill less than 2 seconds. NEUROLOGICAL: NIH 0. GCS 15. Cranial nerves grossly intact. Normal speech, normal gait. Normal sensory, motor exams. Reflexes 2+ b/l. DEMETRIO's negative. Pronator drift negative. Heel/burkett, finger/nose wnl. PSYCH: Normal mood, normal affect. SKIN: Warm, Dry, normal turgor, no rashes or lesions noted. - INFECTION CONTROL TRAVEL OUTSIDE OF THE [place] IN LAST 30 DAYS: No Course - Re-evaluation Re-evalutation: 06/27/19 15:47 Patient is an afebrile, well-hydrated, 23-year-old female who presents to the ED with a headache, suspect tension headache. Vitals are acceptable without any significant tachycardia, tachypnea, or hypoxia. PE is otherwise unremarkable for any focal neurological deficits. NIH 0, GCS 15, cranial nerves grossly intact. Patient has had headaches like this in the past recently. No labs or imaging warranted at this time based on H&P. Patient was given Compazine and benadryl which has resolved her headache. Patient states that she is feeling much better and would like to go home. She is nontoxic-appearing and is tolerating p.o. without any difficulties. Low suspicion for any acute glaucoma, temporal arteritis, meningitis, intracranial hemorrhage, ischemic stroke, or fracture at this time. Patient is aware that this condition can change from initial presentation and that she needs to monitor symptoms closely for any acute changes. Recheck with your PCM/neurologist in 3-5 days. Return to the ED with any worsening/concerning symptoms otherwise as reviewed in discharge. Patient is in agreement. - Vital Signs Vital signs: Temp Pulse Resp BP Pulse Ox 98.1 F 69 18 119/69 97 06/27/19 13:36 06/27/19 13:36 06/27/19 13:36 06/27/19 13:36 06/27/19 13:36 Discharge - Discharge Clinical Impression: Tension headache Condition: Stable Disposition: HOME, SELF-CARE Instructions: Headache ([facility]) Additional Instructions: Rest, Ice/cool compress Tylenol/ibuprofen as needed Light stretches daily Strength exercises as able Moist heat and massage may help F/u with your PCP in 2-3 days for a recheck Consider consult(s) with Neurology for ongoing/worsening symptoms Return to the ED with any worsening symptoms and/or development of fever, headache, changes in behavior/mentation/vision/speech, chest pain, palpitations, syncope, shortness of breath, trouble breathing, abdominal pain, n/v/d, blood in stool/urine, loss of control of bowel/bladder, urinary retention, muscle weakness/paralysis, saddle anesthesia, numbness/tingling, or other worsening symptoms that are concerning to you. Forms: Return to Work Referrals: NIALL GARRIDO MD [NO LOCAL MD] - Follow up as needed [facility] [Provider Group] - Follow up as needed
[2019-06-27 15:59] VITALS: BP 106/61
== END 2019-06-27 15:59 | disposition home or self-care (01) ==
LOC: ER 12:51
DX: G44.209 Tension-type headache, unspecified, not intractable (principal); F17.200 Nicotine dependence, unspecified, uncomplicated
CPT/HCPCS: 99283; 96374; 96375; J1200; J0780

== ENCOUNTER 2019-11-30 19:06 | Emergency (ER) | payer SELFPAY ==
[2019-11-30 19:27] VITALS: BP 113/61
[2019-11-30] MEDS ORDERED: DEXAMETHASONE SOD PHOS INJ 10 MG/1 ML VIAL IM ONE (19:35)
[2019-11-30] MEDS ORDERED: KETOROLAC TROMETHAMINE 60 MG/2 ML SDV IM ONE (19:35)
[2019-11-30] MEDS ORDERED: LIDOCAINE 5% (700 MG) TRANSDERMAL ADH..PATCH TP ONE (19:38)
--- NOTE | 2019-11-30 19:43 | ER Document Report ---
HPI - HPI Time Seen by Provider: 11/30/19 19:30 Pain Level: 4 Context: Patient is a 24-year-old female who presents the emergency department with a chief complaint of low back pain. Her symptoms started 3 days ago. She states that she woke up that day and ended up having pain. She took ibuprofen to try to help with her pain, but did not have any relief of her symptoms. She did not try to continue to take the ibuprofen. Last menstrual cycle was on 23 November. She denies any dysuria. She also states that she woke up in her spine was malaligned. She denies any injury. Denies any IV drug abuse. Denies any paresthesias. - ROS Systems Reviewed and Negative: Yes All other systems reviewed and negative - CONSTITUTIONAL Constitutional: DENIES: Fever, Chills - REPRODUCTIVE LMP: 11/23/19 Reproductive: DENIES: : - MUSCULOSKELETAL Musculoskeletal: REPORTS: Back Pain. DENIES: Extremity pain, Neck Pain, Swelling - DERM Skin Color: Normal Skin Problems: None Past Medical History - Social History Smoking Status: Never Smoker Family History: Reviewed & Not Pertinent, Arthritis, CAD, COPD, CVA, DM, Hyperlipidemia, Hypertension Patient has suicidal ideation: No Patient has homicidal ideation: No Neurological Medical History: Reports: Hx Migraine Renal/ Medical History: Denies: Hx Peritoneal Dialysis Musculoskeletal Medical History: Reports Hx Musculoskeletal Deformity Past Surgical History: Reports: Hx Abdominal Surgery - hernia repair, Hx Cardiac Catheterization, Hx Cardiac Surgery, Hx Open Heart Surgery - valve repair, Hx Oral Surgery - cleft palate and lip repair, Hx Orthopedic Surgery - hip surgery x 2 - Immunizations Immunizations up to date: Yes Hx Diphtheria, Pertussis, Tetanus Vaccination: Yes Vertical Provider Document - CONSTITUTIONAL Agree With Documented VS: Yes Exam Limitations: No Limitations General Appearance: No Apparent Distress - INFECTION CONTROL TRAVEL OUTSIDE OF THE [place] IN LAST 30 DAYS: No - HEENT HEENT: Atraumatic, Normocephalic, PERRLA - NECK Neck: Normal Inspection - RESPIRATORY Respiratory: No Respiratory Distress - CARDIOVASCULAR Cardiovascular: Regular Rate, Regular Rhythm - MUSCULOSKELETAL/EXTREMETIES Musculoskeletal/Extremeties: FROM, Tender - Very mildly tender mid lower back - NEURO Level of Consciousness: Awake, Alert, Appropriate Motor/Sensory: No Motor Deficit, No Sensory Deficit - DERM Integumentary: Warm, Dry, No Rash Course - Re-evaluation Re-evalutation: 11/30/19 20:34 Patient's lumbar spine says questionable soap scoliosis, or may be due to patient's position. I suspect it is due to the patient's position, as the patient is able to move her back a certain way. 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 I talked to her about proper positioning and back exercises. Urinalysis is unremarkable. Follow-up precautions were given. Verbal discharge instructions were given to the patient. They verbalized understanding. They are stable for discharge. - Vital Signs Vital signs: Temp Pulse Resp BP Pulse Ox 97.4 F 83 16 113/61 97 11/30/19 19:25 11/30/19 19:25 11/30/19 19:25 11/30/19 19:25 11/30/19 19:25 Discharge - Discharge Clinical Impression: Low back pain Qualifiers: Chronicity: acute Back pain laterality: bilateral Sciatica presence: without sciatica Qualified Code(s): M54.5 - Low back pain Condition: Stable Disposition: HOME, SELF-CARE Instructions: Stretching Exercises for the Back ([facility]) Additional Instructions: You were seen today in the emergency department for low back pain. There is a possibility that you may have had scoliosis since your child. Please follow-up with [facility] or [facility] in regards to this visit. I highly recommend that you do back exercises to help with your back. Make sure you have good posture at work. You are being prescribed naproxen, medication to help with your back pain. I also highly recommend you foam roll. You can look up foam rolling exercises on YouTube. Prescriptions: Naproxen 500 mg PO BID #30 tablet Forms: Return to Work Referrals: [facility] [Provider Group] - Follow up as needed [facility] [Provider Group] - Follow up as needed
[2019-11-30 20:07] LABS: APPEARANCE,URINE CLEAR; BILIRUBIN,URINE NEGATIVE (NEGATIVE); COLOR,URINE YELLOW; GLUCOSE, URINE NEGATIVE (NEGATIVE); KETONES,URINE NEGATIVE (NEGATIVE); LEUKOCYTE ESTERASE,URINE SMALL (NEGATIVE); NITRITE,URINE NEGATIVE (NEGATIVE); PROTEIN,URINE NEGATIVE (NEGATIVE); UROBILINOGEN,URINE NEGATIVE mg/dL (<2.0)
[2019-11-30 20:18] LABS: URINE AMPHETAMINES SCREEN NEGATIVE; URINE BARBITURATES SCREEN NEGATIVE; URINE BENZODIAZEPINES SCREEN NEGATIVE; URINE COCAINE SCREEN NEGATIVE; URINE MARIJUANA (THC) SCREEN UNCONFIRMED POSITIVE; URINE METHADONE SCREEN NEGATIVE; URINE PHENCYCLIDINE SCREEN NEGATIVE
--- NOTE | 2019-11-30 20:24 | RADIOLOGY REPORT (SQ) ---
EXAM DESCRIPTION: XR LUMBAR SPINE ANTEROPOSTERIOR, LATERAL, AND OBLIQUES, 5 views COMPLETED DATE/TME: 11/30/2019 19:40 CLINICAL HISTORY: 24 years, Female, low back pain COMPARISON: None. NUMBER OF VIEWS: TECHNIQUE: LIMITATIONS: None. FINDINGS: There is a lumbar dextroscoliotic curve. I am uncertain if this finding is merely due to patient positioning, or due to a genuine scoliosis. No fracture or dislocation. Vertebral bodies and disc spaces are normal in height. There are no degenerative changes. Mineralization of bone appears normal. IMPRESSION: Questionable scoliosis. copyright 2010 [employer]- All Rights Reserved
== END 2019-11-30 20:44 | disposition home or self-care (01) ==
LOC: ER 19:06
DX: M54.5 Low back pain (principal)
CPT/HCPCS: 99283; 96372; 81001; 80307; 72110; J1885; J1100

== ENCOUNTER 2020-06-04 13:30 | Emergency (ER) | payer SELFPAY ==
--- NOTE | 2020-06-04 15:05 | ER Document Report ---
HPI - HPI Time Seen by Provider: 06/04/20 14:54 Pain Level: 2 Context: Patient is a 24-year-old female who presents emergency department with a chief complaint of bilateral jaw pain and throat pain. Patient states that yesterday she noticed that she had redness and white spots to the back of her throat. Patient also has cavities and has some teeth pain. She has not followed up with a dentist. Patient has history of congenital heart defects with cleft palate. - ROS Systems Reviewed and Negative: Yes All other systems reviewed and negative - CONSTITUTIONAL Constitutional: DENIES: Fever, Chills - EENT EENT: DENIES: Nasal Drainage-Purulent, Eye problems - NEURO Neurology: DENIES: Headache, Weakness - CARDIOVASCULAR Cardiovascular: DENIES: Chest pain - RESPIRATORY Respiratory: DENIES: Trouble Breathing, Coughing - REPRODUCTIVE Reproductive: DENIES: : Past Medical History - General Information source: Patient - Social History Smoking Status: Never Smoker Chew tobacco use (# tins/day): No Drug Abuse: None Family History: Reviewed & Not Pertinent, Arthritis, CAD, COPD, CVA, DM, Hyperlipidemia, Hypertension Patient has homicidal ideation: No Neurological Medical History: Reports: Hx Migraine Renal/ Medical History: Denies: Hx Peritoneal Dialysis Musculoskeletal Medical History: Reports Hx Musculoskeletal Deformity Past Surgical History: Reports: Hx Abdominal Surgery - hernia repair, Hx Cardiac Catheterization, Hx Cardiac Surgery, Hx Open Heart Surgery - valve repair, Hx Oral Surgery - cleft palate and lip repair, Hx Orthopedic Surgery - hip surgery x 2 - Immunizations Immunizations up to date: Yes Hx Diphtheria, Pertussis, Tetanus Vaccination: Yes Vertical Provider Document - CONSTITUTIONAL Agree With Documented VS: Yes Exam Limitations: No Limitations General Appearance: No Apparent Distress - INFECTION CONTROL TRAVEL OUTSIDE OF THE [place] IN LAST 30 DAYS: No - HEENT HEENT: Atraumatic, Normocephalic, PERRLA Mouth Diagram: 1 - Dental caries noted - RESPIRATORY Respiratory: Breath Sounds Normal, No Respiratory Distress - CARDIOVASCULAR Cardiovascular: Regular Rate, Regular Rhythm - MUSCULOSKELETAL/EXTREMETIES Musculoskeletal/Extremeties: FROM - NEURO Level of Consciousness: Awake, Alert, Appropriate Course - Re-evaluation Re-evalutation: 06/04/20 Rapid strep is negative. Based off patient's physical exam is having dental caries, will start her on penicillin. Patient will follow-up with the dentist. Also start her on cetirizine, as there is clear fluid behind both tympanic membranes. Airways patent. No evidence of peritonsillar abscess. Follow-up precautions were given. Verbal discharge instructions were given to the patient. They verbalized understanding. They are stable for discharge. - Vital Signs Vital signs: Temp Pulse Resp BP Pulse Ox 98.2 F 61 18 100/87 H 98 06/04/20 13:34 06/04/20 13:34 06/04/20 13:34 06/04/20 13:34 06/04/20 13:34 Discharge - Discharge Clinical Impression: Jaw pain, Tooth pain Condition: Stable Disposition: HOME, SELF-CARE Instructions: Penicillin V K ([facility]), Toothache ([facility]) Additional Instructions: You have been seen in the emergency department for a toothache. You may take ibuprofen 600 mg and Tylenol 1000 mg every 6 hours as needed for the pain. You have also been prescribed antibiotics. Please take the antibiotics as prescribed, even if you start to feel better. If you develop a fever greater than 100.4 F, or have any symptoms that are worrisome to you, please return to the emergency department. Please follow-up with a dentist this week in regards to your visit. You also have some fluid behind your ears. You can take [id number] cetiri zine/Zyrtec to help clear that up. This will help prevent an ear infection. Prescriptions: Cetirizine HCl [All Day Allergy] 10 mg PO DAILY #30 tablet Penicillin V Potassium [Penicillin Vk 500 mg Tablet] 500 mg PO BID #20 tablet Forms: Return to Work Referrals: [facility] [Provider Group] - Follow up as needed [facility] [Provider Group] - Follow up as needed [facility] [Provider Group] - Follow up in 1 week
[2020-06-04 16:24] VITALS: BP 100/74
== END 2020-06-04 16:33 | disposition home or self-care (01) ==
LOC: ER 13:30
DX: K02.9 Dental caries, unspecified (principal); K08.89 Other specified disorders of teeth and supporting structures; R68.84 Jaw pain; R07.0 Pain in throat
CPT/HCPCS: 87070; 87077; 87880; 99283